=== PATIENT | female | born 1945 | race Caucasian/White ===

== ENCOUNTER → 2016-09-24 | Outpatient (CLI) | payer MEDICARE ==
--- NOTE | 2016-09-25 12:04 | MM ---
Reason for exam: screening (asymptomatic). Last mammogram was performed 1 year and 6 months ago. History: Patient is postmenopausal and has history of other cancer at age 46. Family history of breast cancer in maternal aunt. Physical Findings: A clinical breast exam by your physician is recommended on an annual basis and results should be correlated with mammographic findings. MG 3D Screening Mammo W/Cad Bilateral CC and MLO view(s) were taken. Prior study comparison: March 15, 2015, bilateral MG screening mammo w CAD. May 04, 2013, bilateral digital screening mammo w/CAD. February 11, 2012, bilateral digital screening mammo w/CAD. There are scattered fibroglandular densities. No significant changes when compared with prior studies. ASSESSMENT: Negative, BI-RAD 1 RECOMMENDATION: Routine screening mammogram of both breasts in 1 year. Manage on a clinical basis with regard to patient's reported medial left breast sore.
--- NOTE | 2016-09-25 13:18 | BD ---
EXAMINATION TYPE: MG DEXA axial skeleton. DATE OF EXAM: 09/24/2016 2:35 PM COMPARISON: 03/15/2015 CLINICAL HISTORY: Height: 4 ft 10 in Weight: 167 FRAX RISK QUESTIONS: Alcohol (3 or more units per day): YES Family History (Parent hip fracture): YES Glucocorticoids (More than 3mos): YES (Ex: prednisone, prednisolone, methylprednisolone, dexamethasone, and hydrocortisone). History of Fracture in Adulthood: NO Secondary Osteoporosis: 1. Type 1 Diabetes: NO 2. Hyperthyroidism: NO 3. Menopause before 45: NO 4. Malnutrition: NO 5. Chronic liver disease: NO Rheumatoid Arthritis: NO Current Tobacco Use: NO RISK FACTORS HISTORY OF: Drink Alcohol: SOCIALLY Active: YES Postmenopausal woman: AGE 58 Lost more than 2 inches in height since high school: YES MEDICATIONS: Additional Medications: PAXIL, XANAX,CICLOPIROX, LAMOTRIGINE, ATORVASTATIN, XOPENEX INHALER,LM , ALIGN, ASPIRIN, PREVACID, VIT D, CENTRUM, IBUPROFEN, Additional History: EXAM MEASUREMENTS: Bone mineral densitometry was performed using the [employer] System. Bone mineral density as measured about the Lumbar spine is: ----- L1-L4(G/cm2): 1.328 T Score Values are as follows: ----- L2: 1.2 ----- L3: 2.3 ----- L4: 0.0 ----- L1-L4: 1.2 Bone mineral density has: Increased 1.1% since study of: 2014 Bone mineral density about the R hip (g/cm2): 0.766 Bone mineral density about the L hip (g/cm2): 0.807 T Score values are as follows: -----R Neck: -2.0 -----L Neck: -1.7 -----R Intertrochanter: -0.8 -----L Intertrochanter: -1.0 Bone mineral density has: Decreased -3.7% since study of: 2014 IMPRESSION: Osteopenia (T Score between -2.5 and -1 as noted by T score values There is slightly increased risk of fracture and the patient may be considered for treatment. Re-Screen 1-2 years. Bone density is diminished 3.7% from the comparison of 03/15/2015 within the bilateral hips NOTE: T-SCORE=SD OF THE YOUNG ADULT MEAN.
== END | disposition home or self-care (01) ==
LOC: RADMAMWWP 13:56
PROVIDERS: ATTEND Internal Medicine Geriatric Medicine
DX: Z12.31 Encounter for screening mammogram for malignant neoplasm of breast (principal); M85.80 Other specified disorders of bone density and structure, unspecified site
CPT/HCPCS: 77080; 77063; G0202

== ENCOUNTER → 2017-12-29 | Outpatient (CLI) | payer MEDICARE ==
[2017-12-29 10:04] VITALS: BP 147/61; PULSE 88; TEMP 97.9; BMI 33.1
--- NOTE | 2017-12-29 11:05 | P.HPOB ---
History of Present Illness H&P Date: 12/29/17 Chief Complaint: The patient is here for her routine gynecologic exam and mammogram. This is a 72-year-old with an LMP of 2001. The patient is here to establish with this office. She states she does have a history of a cystocele. This has been followed conservatively. She states she notices a slight bulge that she can feel from the vaginal opening. She also has some issues with urinary incontinence. She states she can leak any time and usually does not have warning. It has been about 3 years since her last pelvic exam. Review of Systems Her weight has fluctuated over the last few years. She lost 25 pounds while on [employer]. She has gained about 15 pounds back. She denies respiratory, cardiac and G.I. problems. She denies maltreatment or problems with falling. : she has had some problems with urinary leakage can occur anytime. Past Medical History Past Medical History: Cancer (Bladder approximately 2002), GERD/Reflux Additional Past Medical History / Comment(s): History of osteopenia and vocal chord disfunction. 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 - Past Family History Mother Family Medical History: No Reported History Additional Family Medical History / Comment(s): Maternal aunt had breast cancer. Father Additional Family Medical History / Comment(s): ALS. Medications and Allergies Home Medications and Allergies Comment(s): The patient takes medications including Paxil and alprazolam, but she did not bring her list with dosages. She states you will get this to us in the near future. Home Medications Medication Instructions Recorded Confirmed Type No Known Home Medications 12/29/17 12/29/17 History Allergies Allergy/AdvReac Type Severity Reaction Status Date / Time Sulfa (Sulfonamide Allergy Swelling Unverified 12/29/17 09:56 Antibiotics) codeine AdvReac Rash/Hives Unverified 12/29/17 09:56 Exam Vital Signs Temp Pulse BP 12/29/17 09:59 97.9 F 88 147/61 Intake and Output 12/28/17 12/29/17 12/29/17 22:59 06:59 14:59 Other: Weight 74.389 kg Height 4'11", BMI 33.1. This is a short stature to well-nourished white female who is alert and oriented times 3 in no acute distress. HEENT: Within normal limits. NECK: Supple without mass or thyromegaly. CHEST AND LUNGS: Clear to auscultation. HEART: Regular rate and rhythm. BREASTS: Are without mass or discharge. There is central nipple inversion which the patient states she has had for many years. AXILLARY EXAM: Negative for adenopathy. BACK: Negative for CVA tenderness. ABDOMEN: Soft, nontender, without palpable masses. PELVIC EXAM: Normal external genitalia with mild to moderate atrophy. Cervix and vagina appear normal with mild to moderate atrophy. There is no unusual discharge. There is no evidence of prolapse at rest. There is a grade 1 to 2 cystocele with Valsalva. No urinary leakage is demonstrated. The uterus is midposition, nongravid size and nontender. There are no palpable adnexal masses or tenderness. RECTAL EXAM: rectovaginal exam is negative for mass or tenderness and is negative for occult blood. EXTREMITIES: Nontender. IMPRESSION: 1. 72-year-old menopausal female with normal gynecologic exam. 2. Small cystocele with Valsalva and is subjectively noticeable by the patient at times. 3. History of urinary incontinence, probably mixed incontinence. 4. History of osteopenia. PLAN: 1. Pap smear was performed. 2. Self breast awareness was discussed. 3. Screening mammogram will be done today. 4. We have had a long discussion regarding the small cystocele. She will do negative Valsalva exercises on a regular basis and these were described to the patient. I've also recommended Kegal exercises which were also described to the patient. I have recommended sets of 20 at least 3 times daily. She will call if she needs further evaluation for urinary incontinence. 5. Osteoporosis prevention was discussed. Bone density test was done on 2016 in short osteopenia. I recommended that she repeat this next year. 6. I have recommended that she check her own blood pressure at home on a regular basis and to follow-up with Dr. Ortiz for blood pressure elevations. 7. She will return in one year and PRN.
--- NOTE | 2017-12-31 10:43 | MM ---
Reason for exam: screening (asymptomatic). Last mammogram was performed 1 year and 3 months ago. History: Patient is postmenopausal and has history of other cancer at age 46. Family history of breast cancer in maternal aunt. Physical Findings: A clinical breast exam by your physician is recommended on an annual basis and results should be correlated with mammographic findings. MG 3D Screening Mammo W/Cad Bilateral CC and MLO view(s) were taken. Prior study comparison: September 24, 2016, bilateral MG 3d screening mammo w/cad. March 15, 2015, bilateral MG screening mammo w CAD. There are scattered fibroglandular densities. No significant changes when compared with prior studies. ASSESSMENT: Benign, BI-RAD 2 RECOMMENDATION: Routine screening mammogram of both breasts in 1 year.
== END | disposition home or self-care (01) ==
LOC: WWCWWP 09:44
PROVIDERS: ATTEND Obstetrics & Gynecology
DX: Z12.31 Encounter for screening mammogram for malignant neoplasm of breast (principal)
CPT/HCPCS: 77063; 77067

== ENCOUNTER → 2018-03-15 | Outpatient (CLI) | payer MEDICARE ==
--- NOTE | 2018-03-15 13:38 | XR ---
EXAMINATION TYPE: XR chest 2V DATE OF EXAM: 03/15/2018 COMPARISON: 03/06/2016 INDICATION: Short of breath TECHNIQUE: Frontal and lateral views of the chest are obtained. FINDINGS: The heart size is normal. The pulmonary vasculature is normal. There is some linear scarring within the left midlung. Spondylosis is through the thoracic spine. IMPRESSION: 1. No acute pulmonary process.
== END ==
LOC: RADXRMAIN 13:02
PROVIDERS: ATTEND Internal Medicine Geriatric Medicine
DX: R06.02 Shortness of breath (principal)
CPT/HCPCS: 71046

== ENCOUNTER → 2018-03-22 | Outpatient (CLI) | payer MEDICARE ==
--- NOTE | 2018-03-23 10:04 | ECHOF ---
Referral Reason:I27.20 Pulmonary hypertension MEASUREMENTS -------- HEIGHT: 147.3 cm WEIGHT: 74.4 kg BP: 157/72 RVIDd: 2.9 cm (< 3.3) IVSd: 1.1 cm (0.6 - 1.1) LVIDd: 4.7 cm (3.9 - 5.3) LVPWd: 1.0 cm (0.6 - 1.1) IVSs: 1.3 cm LVIDs: 3.3 cm LVPWs: 1.6 cm LA Diam: 3.5 cm (2.7 - 3.8) LAESV Index (A-L): 18.31 ml/m Ao Diam: 3.2 cm (2.0 - 3.7) AV Cusp: 2.0 cm (1.5 - 2.6) MV EXCURSION: 23.384 mm (> 18.000) MV EF SLOPE: 96 mm/s (70 - 150) EPSS: 0.5 cm MV E Robert: 0.57 m/s MV DecT: 435 ms MV A Robert: 0.88 m/s MV E/A Ratio: 0.65 RAP: 5.00 mmHg RVSP: 28.31 mmHg FINDINGS -------- Sinus rhythm. This was a technically good study. The left ventricular size is normal. There is borderline concentric left ventricular hypertrophy. Overall left ventricular systolic function is normal with, an EF between 55 - 60 %. The right ventricle is normal in size and function. Normal LA size by volume 22+/-6 ml/m2. The right atrium is normal in size. The aortic valve is trileaflet and appears structurally normal. Mild mitral annular calcification present. Mild tricuspid regurgitation present. Right ventricular systolic pressure is normal at < 35 mmHg. Trace/mild (physiologic) pulmonic regurgitation. The aortic root size is normal. Normal inferior vena cava with normal inspiratory collapse consistent with estimated right atrial pre ssure of 5 mmHg. There is no pericardial effusion. CONCLUSIONS -------- 1. Sinus rhythm. 2. This was a technically good study. 3. The left ventricular size is normal. 4. There is borderline concentric left ventricular hypertrophy. 5. Overall left ventricular systolic function is normal with, an EF between 55 - 60 %. 6. The right ventricle is normal in size and function. 7. Normal LA size by volume 22+/-6 ml/m2. 8. The right atrium is normal in size. 9. The aortic valve is trileaflet and appears structurally normal. 10. Mild mitral annular calcification present. 11. Mild tricuspid regurgitation present. 12. Right ventricular systolic pressure is normal at < 35 mmHg. 13. Trace/mild (physiologic) pulmonic regurgitation. 14. The aortic root size is normal. 15. Normal inferior vena cava with normal inspiratory collapse consistent with estimated right atrial pressure of 5 mmHg. 16. There is no pericardial effusion. BOOKKEEPING SERVICE SALES AGENT: Nelsy Hernandez RDCS
== END | disposition home or self-care (01) ==
LOC: RADECHMAIN 15:49
PROVIDERS: ATTEND Internal Medicine Geriatric Medicine
DX: I08.1 Rheumatic disorders of both mitral and tricuspid valves (principal); I27.20 Pulmonary hypertension, unspecified
CPT/HCPCS: 93306

== ENCOUNTER 2018-04-23 15:12 | Emergency (ER) | payer MEDICARE ==
[2018-04-23] MEDS ORDERED: LORazepam 2 MG/ML INJ IV STA (16:18)
--- NOTE | 2018-04-23 16:46 | ED ---
General Adult HPI - General Chief complaint: Psychiatric Symptoms Stated complaint: Anxiety & Depression Time Seen by Provider: 04/23/18 16:02 Source: patient, RN notes reviewed Mode of arrival: wheelchair Limitations: no limitations - History of Present Illness Initial comments: Patient is 72-year-old female presents emergency room today with a chief complaint of increased anxiety and panic attack. Did see her therapist further treatment was advised come back here to the emergency room for evaluation. Patient's that bedside providing much of the history stating that she generic Paxil. States that in the past she was taken off the name brand given generic she had similar symptoms persist 10 days goes was given a prescription for generic Paxil. States symptoms have been increasing. Was seen here the emergency room yesterday for same complaints. The time was calm after medication was given here in the ER. She felt couple being discharged follow- up with the psychiatrist. At this time patient has increased anxiety. Patient denies any pain. She denies any other complaints. states this is consistent with anxiety attacks that she's had in the past. Patient's states that there is multiple family issues that the or tingling currently. Patient denies any recent fever, chills, shortness of breath, chest pain, back pain, abdominal pain, nausea or vomiting, headaches or visual changes, or any other complaints. - Related Data Home Medications Medication Instructions Recorded Confirmed ALPRAZolam [ALPRAZolam XR] 1 mg PO BID 01/06/18 04/23/18 Aspirin [Children's Aspirin] 81 mg PO DAILY 01/06/18 04/23/18 Atorvastatin [Lipitor] 10 mg PO DAILY 01/06/18 04/23/18 Ergocalciferol (Vitamin D2) 50,000 unit PO Q7D 01/06/18 04/23/18 [Vitamin D2] lamoTRIgine [LaMICtal] 75 mg PO HS 01/06/18 04/23/18 traZODone HCL [TraZODone HCl] 50 mg PO HS 01/06/18 04/23/18 PARoxetine [Paxil] 40 mg PO DAILY 04/22/18 04/23/18 lamoTRIgine [LaMICtal] 50 mg PO DAILY 04/22/18 04/23/18 Previous Rx's Medication Instructions Recorded PARoxetine HCL [Paxil] 40 mg PO DAILY #14 tab 04/23/18 Allergies Allergy/AdvReac Type Severity Reaction Status Date / Time Sulfa (Sulfonamide Allergy Swelling Verified 04/23/18 16:37 Antibiotics) codeine AdvReac Rash/Hives Verified 04/23/18 16:37 Review of Systems ROS Statement: Those systems with pertinent positive or pertinent negative responses have been documented in the HPI. ROS Other: All systems not noted in ROS Statement are negative. Past Medical History Past Medical History: Cancer, GERD/Reflux Additional Past Medical History / Comment(s): History of osteopenia and vocal chord disfunction. 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 History of Any Multi-Drug Resistant Organisms: None Reported Past Surgical History: Bladder Surgery, Joint Replacement, Orthopedic Surgery Additional Past Surgical History / Comment(s): 2 births natural, bladder cancer Past Psychological History: Anxiety, Depression Smoking Status: Never smoker Past Alcohol Use History: Occasional Past Drug Use History: None Reported - Past Family History Mother Family Medical History: No Reported History Additional Family Medical History / Comment(s): Maternal aunt had breast cancer. Father Additional Family Medical History / Comment(s): ALS. General Exam - General Exam Comments Initial Comments: General: The patient is awake and alert, in no distress, and does not appear acutely ill. Eye: Pupils are equal, round and reactive to light. Extra-ocular movements are intact. No nystagmus. There is normal conjunctiva bilaterally. No signs of icterus. Ears, nose, mouth and throat: There are moist mucous membranes and no oral lesions. Neck: The neck is supple, there is no tenderness or JVD. Cardiovascular: There is a regular rate and rhythm. No murmur, rub or gallop is appreciated. Respiratory: Lungs are clear to auscultation, respirations are non-labored, breath sounds are equal. No wheezes, stridor, rales, or rhonchi. Musculoskeletal: Normal ROM, no tenderness. Sensation intact. Strength 5/5. Pulses equal bilaterally 2+. Neurological: A&O x 3. CN II-XII intact, There are no obvious motor or sensory deficits. Coordination appears grossly intact. Speech is normal. Skin: Skin is warm and dry and no rashes or lesions are noted. Psychiatric: Cooperative. Anxious. Limitations: no limitations Course Vital Signs 04/23/18 15:41 Temperature 98.1 F Pulse Rate 68 Respiratory 16 Rate Blood Pressure 129/80 O2 Sat by Pulse 96 Oximetry EKG Findings - EKG Comments: EKG Findings:: EKG performed at 1721: Shows normal sinus rhythm at 61 bpm NJ interval 130. QRS 86. QT/QTc 426/420. No acute ST changes. Medical Decision Making - Medical Decision Making Patient has been seen here in the emergency room by mental health. They did discuss case with psychiatrist recommends increasing Paxil from 20 mg and 10 mg at 20 mg twice a day. Also recommending starting a prescription that can be ordered for the name brand of Paxil some generic. Patient will be given a prescription for the next 7 days. Advised following up on Thursday. - Lab Data Result diagrams: 04/23/18 16:54 Lab Results 04/23/18 Range/Units 16:54 WBC 7.1 (3.8-10.6) k/uL RBC 4.87 (3.80-5.40) m/uL Hgb 14.1 (11.4-16.0) gm/dL Hct 44.5 (34.0-46.0) % MCV 91.4 (80.0-100.0) fL MCH 29.0 (25.0-35.0) pg MCHC 31.7 (31.0-37.0) g/dL RDW 13.6 (11.5-15.5) % Plt Count 223 (150-450) k/uL Neutrophils % 55 % Lymphocytes % 35 % Monocytes % 7 % Eosinophils % 1 % Basophils % 1 % Neutrophils # 3.9 (1.3-7.7) k/uL Lymphocytes # 2.4 (1.0-4.8) k/uL Monocytes # 0.5 (0-1.0) k/uL Eosinophils # 0.1 (0-0.7) k/uL Basophils # 0.0 (0-0.2) k/uL Disposition Clinical Impression: Acute anxiety Disposition: HOME SELF-CARE Condition: Good Instructions: Anxiety (ED) Additional Instructions: Please use medication as discussed. Please follow-up with psychiatrist Thursday as discussed. Please return to emergency room if the symptoms increase or worsen or for any other concerns. Prescriptions: PARoxetine HCL [Paxil] 40 mg PO DAILY #14 tab Is patient prescribed a controlled substance at d/c from ED?: No Referrals: Tyron Ortiz MD [Primary Care Provider] - 1-2 days Time of Disposition: 20:36
[2018-04-23 17:17] LABS: Basophils % (A) 1 %; Eosinophils # (A) 0.1 k/uL (0-0.7); Eosinophils % (A) 1 %; HCT 44.5 % (34.0-46.0); HGB 14.1 gm/dL (11.4-16.0); Lymphocytes # (A) 2.4 k/uL (1.0-4.8); Lymphocytes % (A) 35 %; MCHC 31.7 g/dL (31.0-37.0); MCV 91.4 fL (80.0-100.0); Mean Platelet Volume 7.7; Monocytes # (A) 0.5 k/uL (0-1.0); Monocytes % (A) 7 %; Neutrophils # (A) 3.9 k/uL (1.3-7.7); Neutrophils % (A) 55 %; Platelet Count 223 k/uL (150-450); RBC 4.87 m/uL (3.80-5.40); RDW 13.6 % (11.5-15.5); WBC 7.1 k/uL (3.8-10.6)
[2018-04-23 20:43] VITALS: BP 151/80; PULSE 59; RESP 20; TEMP 98.2
== END 2018-04-23 20:52 | disposition home or self-care (01) ==
LOC: EC 15:12
DX: F41.9 Anxiety disorder, unspecified (principal); F32.9 Major depressive disorder, single episode, unspecified; Z85.51 Personal history of malignant neoplasm of bladder; Z79.82 Long term (current) use of aspirin; Z79.899 Other long term (current) drug therapy; Z88.2 Allergy status to sulfonamides; Z88.5 Allergy status to narcotic agent
CPT/HCPCS: 36415; 85025; 99283; 96372; J2060

== ENCOUNTER → 2018-12-30 | Outpatient (CLI) | payer MEDICARE ==
--- NOTE | 2018-12-30 13:49 | BD ---
EXAMINATION TYPE: Axial Bone Density DATE OF EXAM: 12/30/2018 COMPARISON: 09.24.2016 CLINICAL HISTORY: 73 YR OLD FEMALE....ICD-10 CODE: M81.0 OSTEOPRORSIS Height: 57.3 Weight: 161 FRAX RISK QUESTIONS: Alcohol (3 or more units per day): YES, SOCIALLY Family History (Parent hip fracture): YES Glucocorticoids (More than 3mos): YES (Ex: prednisone, prednisolone, methylprednisolone, dexamethasone, and hydrocortisone). RISK FACTORS HISTORY OF: FOOT FRACTURE ONLY, YOUNGER THAN AGE 51 Postmenopausal woman: YES AT AGE 58 Lost more than 2 inches in height since high school: YES MEDICATIONS: Prednisone or other steroids: YES, XOPENEX INHALER FOR ASTHMA, LM How Long: MANY YRS Additional Medications: PAXIL, XANAX, STATIN FOR CHOLESTEROL, ASPIRIN, REFLUX MEDS, CENTRUM, VIT D, I BUPROFEN, Additional History: ANXIETY, CHOLESTEROL, REFLUX OSTEOARTHRITIS EXAM MEASUREMENTS: Bone mineral densitometry was performed using the [employer] System. Bone mineral density as measured about the Lumbar spine is: ----- L1-L4(G/cm2): 1.474 T Score Values are as follows: ----- L1: 1.9 ----- L2: 4.1 ----- L3: 3.5 ----- L4: 0.7 ----- L1-L4: 2.5 Bone mineral density has: Increased 12.6% since study of: 09.24.2016 Bone mineral density about the R hip (g/cm2): 0.958 Bone mineral density about the L hip (g/cm2): 0.952 T Score values are as follows: -----R Neck: -2.1 -----L Neck: -1.7 -----R Total: -0.4 -----L Total: -0.4 Bone mineral density has: Increased 1.7% since study of: 09.24.2016 FRAX%s: THERE IS A 23.0% CHANCE FOR A MAJOR OSTEOPOROTIC FX AND A 7.1% FOR HIP....PROBABILITY FOR FX IN 10 YRS TIME IMPRESSION: Osteopenia (T Score between -2.5 and -1). There is slightly increased risk of fracture and the patient may be considered for treatment. Re-Screen 2-5 years. NOTE: T-SCORE=SD OF THE YOUNG ADULT MEAN.
--- NOTE | 2018-12-31 09:07 | MM ---
Reason for exam: screening (asymptomatic). Last mammogram was performed 1 year ago. History: Patient is postmenopausal and has history of other cancer at age 46. Family history of breast cancer in maternal aunt. Physical Findings: A clinical breast exam by your physician is recommended on an annual basis and results should be correlated with mammographic findings. MG 3D Screening Mammo W/Cad Bilateral CC and MLO view(s) were taken. Prior study comparison: December 29, 2017, bilateral MG 3d screening mammo w/cad. September 24, 2016, bilateral MG 3d screening mammo w/cad. There are scattered fibroglandular densities. There is no discrete abnormality. No significant changes when compared with prior studies. ASSESSMENT: Negative, BI-RAD 1 RECOMMENDATION: Routine screening mammogram of both breasts in 1 year.
== END | disposition home or self-care (01) ==
LOC: RADMAMWWP 11:56
PROVIDERS: ATTEND Internal Medicine Geriatric Medicine
DX: Z12.31 Encounter for screening mammogram for malignant neoplasm of breast (principal); M85.80 Other specified disorders of bone density and structure, unspecified site
CPT/HCPCS: 77063; 77067; 77080

== ENCOUNTER → 2019-04-21 | Outpatient (CLI) | payer MEDICARE ==
--- NOTE | 2019-04-22 06:57 | US ---
EXAMINATION TYPE: US kidneys/renal and bladder DATE OF EXAM: 04/21/2019 COMPARISON: NONE CLINICAL HISTORY: R31.9 hematuria. Patient states having history of bladder cancer x twice, 14 years ago. EXAM MEASUREMENTS: Right Kidney: 9.8 x 4.7 x 4.0 cm Left Kidney: 9.5 x 4.8 x 4.7 cm Limited visualization due to overlying bowel gas Right Kidney: No hydronephrosis or masses seen, limited visualization Left Kidney: Pelviectasis without juju hydronephrosis. Bladder: Partially distended, anechoic. Limited due to bowel gas and location. Bilateral Jets not seen There is no evidence for hydronephrosis at this point in time. No nephrolithiasis is seen. No carrie s are identified. The urinary bladder is anechoic. Bilateral ureteral jets not are seen. IMPRESSION: Limited visualization of the bladder and right kidney however no gross evidence of hydron ephrosis nor nephrolithiasis. The visualized portions of the urinary bladder no gross evidence of int ravesicular mass.
== END | disposition home or self-care (01) ==
LOC: RADUSWWP 16:04
PROVIDERS: ATTEND Urology
DX: R31.9 Hematuria, unspecified (principal)
CPT/HCPCS: 76770

== ENCOUNTER → 2019-05-25 | Outpatient (CLI) | payer MEDICARE ==
--- NOTE | 2019-05-25 15:35 | XR ---
EXAMINATION TYPE: XR chest 2V DATE OF EXAM: 05/25/2019 COMPARISON: 03/15/2018 INDICATION: Short of breath COPD TECHNIQUE: Frontal and lateral views of the chest are obtained. FINDINGS: The heart size is normal. The pulmonary vasculature is normal. Minimal linear atelectasis is within the lingula. Lungs are otherwise clear.. IMPRESSION: 1. Minimal plate atelectasis versus scarring at the lingula. 2. An acute process is not otherwise evident.
== END | disposition home or self-care (01) ==
LOC: RADXRMAIN 14:50
PROVIDERS: ATTEND Internal Medicine Geriatric Medicine
DX: J44.9 Chronic obstructive pulmonary disease, unspecified (principal)
CPT/HCPCS: 71046

== ENCOUNTER → 2019-05-31 | Outpatient (CLI) | payer MEDICARE ==
--- NOTE | 2019-05-31 12:02 | CT ---
EXAMINATION TYPE: CT abdomen w con DATE OF EXAM: 05/31/2019 HISTORY: Right sided flank pain. CT DLP: 731.7mGycm Automated Exposure Control for Dose Reduction was Utilized. CONTRAST: CT scan of the abdomen is performed with oral and with IV Contrast, patient injected with 100 mL of I sovue 300. COMPARISON: Renal ultrasound April 21, 2019 FINDINGS: LUNG BASES: No significant abnormality is appreciated. LIVER/GB: No significant abnormality is appreciated. PANCREAS: No significant abnormality is seen. SPLEEN: No significant abnormality is seen. ADRENALS: No significant abnormality is seen. KIDNEYS: Symmetric cortical medullary uptake and excretion from both kidneys without hydronephrosis s een bilaterally. BOWEL: Oral contrast does not reach level of terminal ileum making evaluation distal bowel slightly s uboptimal. Normal-appearing appendix is seen from base of cecum. No suspicious small or large bowel d ilatation. LYMPH NODES: No greater than 1cm abdominal lymph nodes are appreciated. OSSEOUS STRUCTURES: Straightening of spine with multilevel moderate to severe disc space narrowing an d vacuum disc phenomenon with multilevel endplate sclerosis and moderate anterior and lateral spurrin g. Facet arthropathy lower lumbar levels. OTHER: No significant additional abnormality is seen. IMPRESSION: No significant acute finding is seen to account for patient's clinical symptoms right-kushal ed flank pain.
== END | disposition home or self-care (01) ==
LOC: RADCTMAIN 10:23
PROVIDERS: ATTEND Urology
DX: R10.9 Unspecified abdominal pain (principal); R31.0 Gross hematuria; Z88.2 Allergy status to sulfonamides; Z91.048 Other nonmedicinal substance allergy status
CPT/HCPCS: 82565; 84520; 74160; 36415; Q9967

== ENCOUNTER → 2021-04-11 | Outpatient (CLI) | payer MEDICARE ==
--- NOTE | 2021-04-12 14:46 | BD ---
EXAMINATION TYPE: Axial Bone Density DATE OF EXAM: 04/11/2021 COMPARISON: NONE CLINICAL HISTORY: Height: 4 FT 10 IN Weight: 160 FRAX RISK QUESTIONS: Alcohol (3 or more units per day): NO Family History (Parent hip fracture): YES Glucocorticoids (More than 3mos): NO (Ex: prednisone, prednisolone, methylprednisolone, dexamethasone, and hydrocortisone). History of Fracture in Adulthood: NO Secondary Osteoporosis: 1. Type 1 Diabetes: NO 2. Hyperthyroidism: NO 3. Menopause before 45: NO 4. Malnutrition: NO 5. Chronic liver disease: NO Rheumatoid Arthritis: NO Current Tobacco Use: NO RISK FACTORS HISTORY OF: Surgery to Spine/Hip(right/left)/Wrist (right/left): NO Family History of Osteoporosis: NO Active: YES Diet low in dairy products/other sources of calcium: NO Postmenopausal woman: AGE 58 Take estrogen and/or progesterone medications: NO Lost more than 2 inches in height since high school: YES Poor Health: GOOD MEDICATIONS: Additional Medications: PAXIL, XANAX, CHOLESTEROL MEDS, ASPIRIN, OMEPRAZOLE, FLOVENT DAILY,[place] [address] Additional History: EXAM MEASUREMENTS: Bone mineral densitometry was performed using the [employer] System. Bone mineral density as measured about the Lumbar spine is: ----- L1-L4(G/cm2): 1.331 T Score Values are as follows: ----- L2: 1.6 ----- L3: 2.1 ----- L4: -0.3 ----- L1-L4: 1.3 Bone mineral density has: DECREASED -11.1 % since study of: 2018 Bone mineral density about the R hip (g/cm2): 0.695 Bone mineral density about the L hip (g/cm2): 0.739 T Score values are as follows: -----R Neck: -2.5 -----L Neck: -2.2 -----R Total: -1.2 -----L Total: -1.1 Bone mineral density has: DECREASED -9.6 % since study of: 2018 IMPRESSION: Osteopenia (T Score between -2.5 and -1). There is slightly increased risk of fracture and the patient may be considered for treatment. Re-Screen 2-5 years. NOTE: T-SCORE=SD OF THE YOUNG ADULT MEAN.
--- NOTE | 2021-04-15 13:59 | MM ---
Reason for exam: screening (asymptomatic). Last mammogram was performed 2 years and 3 months ago. History: Patient is postmenopausal and has history of other cancer at age 46. Family history of breast cancer in maternal aunt. Took hormonal contraceptives for 3 years. Physical Findings: A clinical breast exam by your physician is recommended on an annual basis and results should be correlated with mammographic findings. MG 3D Screening Mammo W/Cad Bilateral CC and MLO view(s) were taken. Prior study comparison: December 30, 2018, bilateral MG 3d screening mammo w/cad. December 29, 2017, bilateral MG 3d screening mammo w/cad. There are scattered fibroglandular densities. There are benign appearing vascular calcifications bilaterally. There is no discrete abnormality. ASSESSMENT: Benign, BI-RAD 2 RECOMMENDATION: Routine screening mammogram of both breasts in 1 year.
== END | disposition home or self-care (01) ==
LOC: RADBDWWP 15:44
PROVIDERS: ATTEND Internal Medicine Geriatric Medicine
DX: Z12.31 Encounter for screening mammogram for malignant neoplasm of breast (principal); M85.89 Other specified disorders of bone density and structure, multiple sites; Z78.0 Asymptomatic menopausal state; Z79.82 Long term (current) use of aspirin; Z79.899 Other long term (current) drug therapy; Z80.3 Family history of malignant neoplasm of breast; Z79.51 Long term (current) use of inhaled steroids
CPT/HCPCS: 77063; 77067; 77080

== ENCOUNTER → 2022-02-21 | Outpatient (CLI) | payer MEDICARE ==
--- NOTE | 2022-02-21 15:10 | XR ---
EXAMINATION TYPE: XR chest 2V DATE OF EXAM: 02/21/2022 COMPARISON: 05/25/2019 HISTORY: Shortness of breath TECHNIQUE: Frontal and lateral views of the chest are obtained. FINDINGS: Scattered senescent parenchymal changes noted. No evidence for infiltrate. No evidence for atelectasis. Heart size is stable. Mediastinal structures are stable and grossly unremarkable. No evidence for hilar prominence. Degenerative changes dorsal spine. IMPRESSION: 1. No evidence for acute pulmonary disease.
== END | disposition home or self-care (01) ==
LOC: RADXRMAIN 14:27
PROVIDERS: ATTEND Nurse Practitioner Family
DX: R06.02 Shortness of breath (principal)
CPT/HCPCS: 71046

== ENCOUNTER 2022-03-16 00:16 | Observation (INO) | payer MEDICARE ==
[2022-03-16] MEDS ORDERED: SODIUM CHLORIDE 0.9% 500 ML 500 ML IV STA (03:57)
[2022-03-16] MEDS ORDERED: SODIUM CHLORIDE 0.9% 1,000 ML IV STA (03:57)
[2022-03-16] MEDS ORDERED: PANTOPRAZOLE 40 MG/10 ML VIAL IVP STA (03:57)
[2022-03-16] MEDS ORDERED: ONDANSETRON 4 MG/2 ML VIAL IVP STA (03:57)
--- NOTE | 2022-03-16 04:16 | ED ---
GI Bleed HPI - General Chief complaint: GI Bleed Stated complaint: Abdominal Pain, Blood in stool, Diarrhea Time Seen by Provider: 03/16/22 03:57 Source: patient, RN notes reviewed, old records reviewed Mode of arrival: ambulatory Limitations: no limitations - History of Present Illness Initial comments: This is a 76-year-old female to the emergency department for evaluation of gross blood in her stools 2. No lightheadedness dizziness or weakness no abdominal pain. No nausea vomiting. No blood thinners patient states he was related to any relation to diarrhea although no current diarrhea. MD complaint: blood streaked stool, gross hematochezia -: hour(s) Radiation: none Severity scale (1-10): 6 Quality: painless Consistency: constant Improves with: none Worsens with: none Associated Symptoms: nausea, weakness Treatments Prior to Arrival: none - Related Data Home Medications Medication Instructions Recorded Confirmed Aspirin [Children's Aspirin] 81 mg PO DAILY 01/06/18 03/16/22 Ergocalciferol (Vitamin D2) 50,000 unit PO Q14D 01/06/18 03/16/22 [Vitamin D2] ALPRAZolam [Xanax] 0.125 mg PO HS 03/16/22 03/16/22 ALPRAZolam [Xanax] 0.25 mg PO DAILY 03/16/22 03/16/22 Bifidobacterium Infantis [Align] 4 mg PO AC-BID 03/16/22 03/16/22 Cranberry Fruit Extract [Cranberry] 500 mg PO DAILY 03/16/22 03/16/22 Denosumab [Prolia] 60 mg SQ Q180D 03/16/22 03/16/22 Fluticasone Propionate 110 Mcg 1 puff INHALATION RT-BID 03/16/22 03/16/22 [Flovent 110 Mcg Inhaler] Lansoprazole 30 mg PO AC-BID 03/16/22 03/16/22 Latanoprost [Latanoprost 0.005%] 1 drop BOTH EYES HS 03/16/22 03/16/22 Montelukast Sodium [Singulair] 10 mg PO HS 03/16/22 03/16/22 Multivit-Min/FA/Lycopen/Lutein 1 tab PO DAILY 03/16/22 03/16/22 [Centrum Silver Tablet] PARoxetine HCL [Paxil Cr] 50 mg PO DAILY 03/16/22 03/16/22 QUEtiapine FUMARATE [SEROquel] 25 mg PO HS 03/16/22 03/16/22 Rosuvastatin [Crestor] 10 mg PO DAILY 03/16/22 03/16/22 Sennosides/Docusate Sodium 1 tab PO BID 03/16/22 03/16/22 [Senna-S 8.6-50 mg Tablet] Ubidecarenone [Coenzyme Q10] 200 mg PO DAILY 03/16/22 03/16/22 amLODIPine [Norvasc] 5 mg PO DAILY 03/16/22 03/16/22 lamoTRIgine [LaMICtal] 200 mg PO HS 03/16/22 03/16/22 Allergies Allergy/AdvReac Type Severity Reaction Status Date / Time codeine Allergy Rash/Hives Verified 03/16/22 14:46 nickel Allergy Rash/Hives Verified 03/16/22 14:46 Sulfa (Sulfonamide Allergy Swelling Verified 03/16/22 14:46 Antibiotics) of genitals Review of Systems ROS Statement: Those systems with pertinent positive or pertinent negative responses have been documented in the HPI. ROS Other: All systems not noted in ROS Statement are negative. Past Medical History Past Medical History: Cancer, GERD/Reflux Additional Past Medical History / Comment(s): History of osteopenia and vocal chord disfunction. 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 History of Any Multi-Drug Resistant Organisms: None Reported Past Surgical History: Bladder Surgery, Joint Replacement, Orthopedic Surgery Additional Past Surgical History / Comment(s): 2 births natural, bladder cancer Past Psychological History: Anxiety, Depression Smoking Status: Never smoker Past Alcohol Use History: Occasional Past Drug Use History: None Reported - Past Family History Mother Family Medical History: No Reported History Additional Family Medical History / Comment(s): Maternal aunt had breast cancer. Father Additional Family Medical History / Comment(s): ALS. General Exam Limitations: no limitations General appearance: alert, in no apparent distress Head exam: Present: atraumatic, normocephalic, normal inspection Eye exam: Present: normal appearance, PERRL, EOMI. Absent: scleral icterus, conjunctival injection, periorbital swelling ENT exam: Present: normal exam, mucous membranes moist Neck exam: Present: normal inspection. Absent: tenderness, meningismus, lymphadenopathy Respiratory exam: Present: normal lung sounds bilaterally. Absent: respiratory distress, wheezes, rales, rhonchi, stridor Cardiovascular Exam: Present: regular rate, normal rhythm, normal heart sounds. Absent: systolic murmur, diastolic murmur, rubs, gallop, clicks GI/Abdominal exam: Present: soft, normal bowel sounds. Absent: distended, tenderness, guarding, rebound, rigid Extremities exam: Present: normal inspection, full ROM, normal capillary refill. Absent: tenderness, pedal edema, joint swelling, calf tenderness Back exam: Present: normal inspection Neurological exam: Present: alert, oriented X3, CN II-XII intact Psychiatric exam: Present: normal affect, normal mood Skin exam: Present: warm, dry, intact, normal color. Absent: rash Course Vital Signs 03/16/22 03/16/22 03/16/22 00:24 06:31 09:32 Temperature 98.3 F Pulse Rate 64 59 L 63 Pulse Rate [ Control Analyst ] Respiratory 18 14 15 Rate Blood Pressure 165/77 136/80 155/79 Blood Pressure [Left Arm] O2 Sat by Pulse 96 98 97 Oximetry 03/16/22 03/16/22 03/16/22 14:03 14:57 18:36 Temperature 100.5 F H 98.4 F Pulse Rate 65 Pulse Rate [ 63 62 Control Analyst ] Respiratory 15 14 16 Rate Blood Pressure 153/66 Blood Pressure 161/68 187/66 [Left Arm] O2 Sat by Pulse 95 95 92 L Oximetry - Reevaluation(s) Reevaluation #1: 03/16/22 Record is reviewed Patient has no active bleeding here in the ER Patient informed results questions have been answered Medical Decision Making - Medical Decision Making 76 female to the emergency department for evaluation of blood in her stool. No symptoms of lightheadedness dizziness or weakness. Patient will be admitted for evaluation of moderate bleeding, need for transfusion. Her monitor and sup portive care - Lab Data Result diagrams: 03/16/22 04:04 03/16/22 04:04 Lab Results 03/16/22 03/16/22 03/16/22 Range/Units 04:04 04:04 04:04 WBC 21.9 H (3.8-10.6) k/uL RBC 5.16 (3.80-5.40) m/uL Hgb 15.1 (11.4-16.0) gm/dL Hct 47.7 H (34.0-46.0) % MCV 92.3 (80.0-100.0) fL MCH 29.2 (25.0-35.0) pg MCHC 31.7 (31.0-37.0) g/dL RDW 13.4 (11.5-15.5) % Plt Count 269 (150-450) k/uL MPV 7.1 Neutrophils % 83 % Lymphocytes % 12 % Monocytes % 3 % Eosinophils % 1 % Basophils % 0 % Neutrophils # 18.2 H (1.3-7.7) k/uL Lymphocytes # 2.6 (1.0-4.8) k/uL Monocytes # 0.7 (0-1.0) k/uL Eosinophils # 0.2 (0-0.7) k/uL Basophils # 0.0 (0-0.2) k/uL APTT 24.2 (22.0-30.0) sec Sodium 134 L (137-145) mmol/L Potassium 4.4 (3.5-5.1) mmol/L Chloride 99 (98-107) mmol/L Carbon Dioxide 21 L (22-30) mmol/L Anion Gap 14 mmol/L BUN 12 (7-17) mg/dL Creatinine 0.65 (0.52-1.04) mg/dL Est GFR (CKD-EPI)AfAm >90 (>60 ml/min/1.73 sqM) Est GFR (CKD-EPI)NonAf 87 (>60 ml/min/1.73 sqM) Glucose 157 H (74-99) mg/dL Calcium 9.1 (8.4-10.2) mg/dL Magnesium 2.1 (1.6-2.3) mg/dL Total Bilirubin 0.8 (0.2-1.3) mg/dL AST 46 H (14-36) U/L ALT 50 H (4-34) U/L Alkaline Phosphatase 105 (38-126) U/L Ammonia (<30) umol/L Troponin I (0.000-0.034) ng/mL Total Protein 8.1 (6.3-8.2) g/dL Albumin 5.0 (3.5-5.0) g/dL Lipase 22 L (23-300) U/L 03/16/22 03/16/22 Range/Units 04:04 04:04 WBC (3.8-10.6) k/uL RBC (3.80-5.40) m/uL Hgb (11.4-16.0) gm/dL Hct (34.0-46.0) % MCV (80.0-100.0) fL MCH (25.0-35.0) pg MCHC (31.0-37.0) g/dL RDW (11.5-15.5) % Plt Count (150-450) k/uL MPV Neutrophils % % Lymphocytes % % Monocytes % % Eosinophils % % Basophils % % Neutrophils # (1.3-7.7) k/uL Lymphocytes # (1.0-4.8) k/uL Monocytes # (0-1.0) k/uL Eosinophils # (0-0.7) k/uL Basophils # (0-0.2) k/uL APTT (22.0-30.0) sec Sodium (137-145) mmol/L Potassium (3.5-5.1) mmol/L Chloride (98-107) mmol/L Carbon Dioxide (22-30) mmol/L Anion Gap mmol/L BUN (7-17) mg/dL Creatinine (0.52-1.04) mg/dL Est GFR (CKD-EPI)AfAm (>60 ml/min/1.73 sqM) Est GFR (CKD-EPI)NonAf (>60 ml/min/1.73 sqM) Glucose (74-99) mg/dL Calcium (8.4-10.2) mg/dL Magnesium (1.6-2.3) mg/dL Total Bilirubin (0.2-1.3) mg/dL AST (14-36) U/L ALT (4-34) U/L Alkaline Phosphatase (38-126) U/L Ammonia <9 (<30) umol/L Troponin I <0.012 (0.000-0.034) ng/mL Total Protein (6.3-8.2) g/dL Albumin (3.5-5.0) g/dL Lipase (23-300) U/L Disposition Clinical Impression: Lower gastrointestinal hemorrhage, Hematochezia Disposition: [facility] Condition: Serious Is patient prescribed a controlled substance at d/c from ED?: No Time of Disposition: 05:30
[2022-03-16 04:17] LABS: Basophils % (A) 0 %; Eosinophils # (A) 0.2 k/uL (0-0.7); Eosinophils % (A) 1 %; HCT 47.7 % (34.0-46.0); HGB 15.1 gm/dL (11.4-16.0); Lymphocytes # (A) 2.6 k/uL (1.0-4.8); Lymphocytes % (A) 12 %; MCH 29.2 pg (25.0-35.0); MCHC 31.7 g/dL (31.0-37.0); MCV 92.3 fL (80.0-100.0); Mean Platelet Volume 7.1; Monocytes # (A) 0.7 k/uL (0-1.0); Monocytes % (A) 3 %; Neutrophils # (A) 18.2 k/uL (1.3-7.7); Neutrophils % (A) 83 %; Platelet Count 269 k/uL (150-450); RBC 5.16 m/uL (3.80-5.40); RDW 13.4 % (11.5-15.5); WBC 21.9 k/uL (3.8-10.6)
[2022-03-16 04:30] LABS: ALT 50 U/L (4-34); AST 46 U/L (14-36); African American GFR (CKD) >90 (>60 ml/min/1.73 sqM); Alkaline Phosphatase 105 U/L (38-126); Anion Gap 14 mmol/L; Blood Urea Nitrogen 12 mg/dL (7-17); Calcium 9.1 mg/dL (8.4-10.2); Carbon Dioxide 21 mmol/L (22-30); Chloride 99 mmol/L (98-107); Glucose 157 mg/dL (74-99); Lipase 22 U/L (23-300); Magnesium 2.1 mg/dL (1.6-2.3); Non-African American GFR(CKD) 87 (>60 ml/min/1.73 sqM); Potassium 4.4 mmol/L (3.5-5.1); Sodium 134 mmol/L (137-145); Total Bilirubin 0.8 mg/dL (0.2-1.3); Total Protein 8.1 g/dL (6.3-8.2)
[2022-03-16] MEDS ORDERED: NALOXONE 0.4 MG/ML 1 ML VIAL IV PRN (05:28)
[2022-03-16] MEDS ORDERED: IOPAMIDOL CONTRAST (ORAL USE) VIAL PO PRN (07:34)
[2022-03-16] MEDS ORDERED: MORPHINE SULFATE 2 MG/ML SYRINGE IVP PRN (07:35)
[2022-03-16] MEDS ORDERED: ACETAMINOPHEN TAB 325 MG TAB PO PRN (07:35)
--- NOTE | 2022-03-16 07:37 | P.HPIM ---
History of Present Illness This is a pleasant 76 years old female with past medical history of GERD and hyperlipidemia, bladder cancer, depression Patient presents because of diarrhea with blood Patient states she went a restaurant yesterday where she noticed sudden onset of vomiting 3, no blood, when she returned home she had 2 bowel movements, first one was normal regular but the second one was just blood as she states Also patient has been complaining of from abdominal cramps, periumbilical, nonradiating about 8/10 in severity associated with nausea. No more vomiting since came into the emergency room She has some chronic dyspnea, also she is complaining of from the distal dizziness but no chest pain, no headache or weakness or numbness, no urinary complaints or urgency. She drinks alcohol socially, no smoking or illicit drugs She states she has history of bipolar and depression but she denies history of seizure. No active symptoms of depression, local and active issue currently, no suicidal ideation She is been complaining of from right knee pain over the last 2 days, she's been taking extra strength Tylenol but no emesis as she explains Vitals are stable Labs showed leukocytosis of 21.9, hemoglobin is 15.1 PTT 24 BMP is unremarkable with normal creatinine and electrolytes Liver enzymes slightly elevated at 46 AST and 50 ALT, bilirubin is normal 0.8. Lipase low at 22. No imaging done in the emergency room Patient was admitted with IV fluids he received an ER as well as Protonix, Zofran and surgery team consult Review of Systems Review of systems CONSTITUTIONAL: No fever, no malaise, no fatigue. HEENT: No recent visual problems or hearing problems. Denied any sore throat. CARDIOVASCULAR: No orthopnea, PND, no palpitations, no syncope. PULMONARY: No shortness of breath, no cough, no hemoptysis. GASTROINTESTINAL: No diarrhea, . Normoactive bowel sounds. NEUROLOGICAL: No headaches, no weakness, no numbness. HEMATOLOGICAL: Denies any bleeding or petechiae. GENITOURINARY: Denies any burning micturition, frequency, or urgency. MUSCULOSKELETAL/RHEUMATOLOGICAL: Denies any joint pain, swelling, or any muscle pain. ENDOCRINE: Denies any polyuria or polydipsia. Past Medical History Past Medical History: Cancer, GERD/Reflux Additional Past Medical History / Comment(s): History of osteopenia and vocal chord disfunction. 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 History of Any Multi-Drug Resistant Organisms: None Reported Past Surgical History: Bladder Surgery, Joint Replacement, Orthopedic Surgery Additional Past Surgical History / Comment(s): 2 births natural, bladder cancer Past Psychological History: Anxiety, Depression Smoking Status: Never smoker Past Alcohol Use History: Occasional Past Drug Use History: None Reported - Past Family History Mother Family Medical History: No Reported History Additional Family Medical History / Comment(s): Maternal aunt had breast cancer. Father Additional Family Medical History / Comment(s): ALS. Medications and Allergies Home Medications Medication Instructions Recorded Confirmed Type ALPRAZolam [ALPRAZolam XR] 1 mg PO BID 01/06/18 04/23/18 History Aspirin [Children's Aspirin] 81 mg PO DAILY 01/06/18 04/23/18 History Atorvastatin [Lipitor] 10 mg PO DAILY 01/06/18 04/23/18 History Ergocalciferol (Vitamin D2) 50,000 unit PO Q7D 01/06/18 04/23/18 History [Vitamin D2] lamoTRIgine [LaMICtal] 75 mg PO HS 01/06/18 04/23/18 History traZODone HCL [TraZODone HCl] 50 mg PO HS 01/06/18 04/23/18 History PARoxetine [Paxil] 40 mg PO DAILY 04/22/18 04/23/18 History lamoTRIgine [LaMICtal] 50 mg PO DAILY 04/22/18 04/23/18 History PARoxetine HCL [Paxil] 40 mg PO DAILY #14 tab 04/23/18 Rx Allergies Allergy/AdvReac Type Severity Reaction Status Date / Time Sulfa (Sulfonamide Allergy Swelling Verified 03/16/22 00:26 Antibiotics) codeine AdvReac Rash/Hives Verified 03/16/22 00:26 Physical Exam Vitals: Vital Signs Temp Pulse Resp BP Pulse Ox 03/16/22 06:31 59 L 14 136/80 98 03/16/22 00:24 98.3 F 64 18 165/77 96 Intake and Output 03/15/22 03/15/22 03/16/22 14:59 22:59 06:59 Other: Weight 72.575 kg GENERAL: The patient is alert and oriented x3, not in any acute distress. Well developed, well nourished. HEENT: Pupils are round and equally reacting to light. EOMI. No scleral icterus. No conjunctival pallor. Normocephalic, atraumatic. No pharyngeal erythema. No thyromegaly. CARDIOVASCULAR: S1 and S2 present. No murmurs, rubs, or gallops. PULMONARY: Chest is clear to auscultation, no wheezing or crackles. -ABDOMEN: Soft, nontender, mild periumbilical tenderness and the lesser extent left lower quadrant tenderness, no guarding or rebound tenderness, normoactive bowel sounds. No palpable organomegaly. MUSCULOSKELETAL: No joint swelling or deformity. EXTREMITIES: No cyanosis, clubbing, or pedal edema. NEUROLOGICAL: Gross neurological examination did not reveal any focal deficits. SKIN: No rashes. no petechiae. Results CBC & Chem 7: 03/16/22 04:04 03/16/22 04:04 Labs: Abnormal Lab Results - Last 24 Hours (Table) 03/16/22 03/16/22 Range/Units 04:04 04:04 WBC 21.9 H (3.8-10.6) k/uL Hct 47.7 H (34.0-46.0) % Neutrophils # 18.2 H (1.3-7.7) k/uL Sodium 134 L (137-145) mmol/L Carbon Dioxide 21 L (22-30) mmol/L Glucose 157 H (74-99) mg/dL AST 46 H (14-36) U/L ALT 50 H (4-34) U/L Lipase 22 L (23-300) U/L Assessment and Plan Assessment: Possible mild acute gastroenteritis Blood in stool, rule out acute GI bleed Leukocytosis, rule out infection Mild elevated liver enzymes Hyperlipidemia History of GERD History of depression, not in active tissue Plan: this is a pleasant 76 years old female who presents with diarrhea some blood Continue with IV fluids Monitor hemoglobin and transfuse if hemoglobin less than 7 Protonix IV Surgery team consult Monitor liver enzymes Checked for C. diff Also we'll order CT of the abdomen with oral contrast Continue with bowel rest and pain medication Checked occult blood in stool We'll do urine analysis, chest x-ray and blood culture as well as Labs and medication were reviewed.. Continue same treatment. Continue with symptomatic treatment. Resume home medication. Monitor lytes and vitals. DVT and GI prophylaxis. Further recommendations as per clinical course of the patient DVT prophylaxis: no Subcutaneous heparin, for GI bleed GI Prophylaxis: Ppi Prognosis is guarded
--- NOTE | 2022-03-16 07:37 | XR ---
EXAMINATION TYPE: XR chest 2V DATE OF EXAM: 03/16/2022 COMPARISON: 02/21/2022 HISTORY: Leukocytosis TECHNIQUE: Frontal and lateral views of the chest are obtained. FINDINGS: There is no focal air space opacity, pleural effusion, or pneumothorax seen. The cardiac silhouette size is within normal limits. The osseous structures are intact. IMPRESSION: No acute cardiopulmonary process.
[2022-03-16] MEDS: SODIUM CHLORIDE 0.9% 1,000 ML IV SCH ×2 (08:02→19:48)
[2022-03-16] MEDS: PANTOPRAZOLE 40 MG/10 ML VIAL IVP SCH (08:03)
--- NOTE | 2022-03-16 08:06 | CT ---
EXAMINATION TYPE: CT abdomen pelvis wo con DATE OF EXAM: 03/16/2022 COMPARISON: 05/31/2019 HISTORY: Bloody stools CT DLP: 595.1 mGycm Automated exposure control for dose reduction was used. TECHNIQUE: Helical acquisition of images was performed from the lung bases through the pelvis. FINDINGS: The lung bases are clear. There is no pericholecystic fluid, gallbladder wall thickening, distention gallstones. There is no bi liary ductal dilatation. There is no focal mass or organomegaly involving the liver, pancreas, spleen or adrenal glands. There is no renal calcification or stenosis. Caliber the abdominal aorta is normal for age. The bowel loops are normal in caliber and there is no evidence of obstruction. There is mild hazy density involving the pericolic adjacent to the descending and sigmoid colon regio n question diverticulitis or colitis. There is no free intraperitoneal air or fluid. There is no pelvic mass or adenopathy. The osseous structures are intact. IMPRESSION: Pericolic mesenteric inflammation surrounding the descending and sigmoid colon raising the question o f diverticulitis or colitis. There is no bowel obstruction. There is no free intraperitoneal air or f luid.
[2022-03-16] MEDS: ONDANSETRON 4 MG/2 ML VIAL IVP PRN ×2 (09:25→23:04)
[2022-03-16 10:35] LABS: Amorphous Sediment,Urine Rare /hpf; Appearance,Urine Clear (Clear); Bilirubin,Urine Negative (Negative); Blood,Urine Negative (Negative); Color,Urine Yellow; Glucose,Urine (UA) Trace (Negative); Ketones,Urine 1+ (Negative); Leukocyte Esterase,Urine Negative (Negative); Mucus,Urine Occasional /hpf; Nitrite,Urine Negative (Negative); Protein,Urine 1+ (Negative); RBC,Urine 1 /hpf (0-5); Specific Gravity,Urine 1.022 (1.001-1.035); Squamous Epithelial Cell,Urine 3 /hpf (0-4); Urobilinogen,Urine <2.0 mg/dL (<2.0); WBC,Urine 2 /hpf (0-5)
[2022-03-16] MEDS ORDERED: PEG 3350 (236 GM/BTL) + LYTES 4,000 ML BOTTLE PO ONE (11:30)
[2022-03-16] MEDS: PIPERACILLIN-TAZOBACTAM 3.375 GM in SODIUM CHLORIDE 0.9% 100 ML IVPB SCH ×2 (13:23→19:49)
--- NOTE | 2022-03-16 13:24 | P.GSCN ---
History of Present Illness Consult date: 03/16/22 Reason for Consult: GI bleed History of present illness: This a 76-year-old female who states she had several large bowel movements. Patient states the bowel movements were completely made of blood. Patient denies a significant abdominal pain. Past Medical History Past Medical History: Cancer, GERD/Reflux Additional Past Medical History / Comment(s): History of osteopenia and vocal chord disfunction. 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 History of Any Multi-Drug Resistant Organisms: None Reported Past Surgical History: Bladder Surgery, Joint Replacement, Orthopedic Surgery Additional Past Surgical History / Comment(s): 2 births natural, bladder cancer Past Psychological History: Anxiety, Depression Smoking Status: Never smoker Past Alcohol Use History: Occasional Past Drug Use History: None Reported - Past Family History Mother Family Medical History: No Reported History Additional Family Medical History / Comment(s): Maternal aunt had breast cancer. Father Additional Family Medical History / Comment(s): ALS. Medications and Allergies Home Medications Medication Instructions Recorded Confirmed Type ALPRAZolam [ALPRAZolam XR] 1 mg PO BID 01/06/18 04/23/18 History Aspirin [Children's Aspirin] 81 mg PO DAILY 01/06/18 04/23/18 History Atorvastatin [Lipitor] 10 mg PO DAILY 01/06/18 04/23/18 History Ergocalciferol (Vitamin D2) 50,000 unit PO Q7D 01/06/18 04/23/18 History [Vitamin D2] lamoTRIgine [LaMICtal] 75 mg PO HS 01/06/18 04/23/18 History traZODone HCL [TraZODone HCl] 50 mg PO HS 01/06/18 04/23/18 History PARoxetine [Paxil] 40 mg PO DAILY 04/22/18 04/23/18 History lamoTRIgine [LaMICtal] 50 mg PO DAILY 04/22/18 04/23/18 History PARoxetine HCL [Paxil] 40 mg PO DAILY #14 tab 04/23/18 Rx Allergies Allergy/AdvReac Type Severity Reaction Status Date / Time Sulfa (Sulfonamide Allergy Swelling Verified 03/16/22 00:26 Antibiotics) codeine AdvReac Rash/Hives Verified 03/16/22 00:26 Surgical - Exam Vital Signs Temp Pulse Resp BP Pulse Ox 98.3 F 64 18 165/77 96 03/16/22 00:24 03/16/22 00:24 03/16/22 00:24 03/16/22 00:24 03/16/22 00:24 - General well developed, well nourished, no distress - Eyes PERRL - ENT normal pinna - Neck no masses - Respiratory normal expansion - Cardiovascular Rhythm: regular - Abdomen Abdomen: soft, non tender Results - Labs 03/16/22 04:04 03/16/22 04:04 Abnormal Lab Results - Last 24 Hours (Table) 03/16/22 03/16/22 03/16/22 Range/Units 04:04 04:04 07:00 WBC 21.9 H (3.8-10.6) k/uL Hct 47.7 H (34.0-46.0) % Neutrophils # 18.2 H (1.3-7.7) k/uL Sodium 134 L (137-145) mmol/L Carbon Dioxide 21 L (22-30) mmol/L Glucose 157 H (74-99) mg/dL AST 46 H (14-36) U/L ALT 50 H (4-34) U/L Lipase 22 L (23-300) U/L Urine Protein (Negative) Urine Glucose (UA) (Negative) Urine Ketones (Negative) Amorphous Sediment (None) /hpf Urine Mucus (None) /hpf Stool Occult Blood Positive H (Negative) 03/16/22 Range/Units 08:15 WBC (3.8-10.6) k/uL Hct (34.0-46.0) % Neutrophils # (1.3-7.7) k/uL Sodium (137-145) mmol/L Carbon Dioxide (22-30) mmol/L Glucose (74-99) mg/dL AST (14-36) U/L ALT (4-34) U/L Lipase (23-300) U/L Urine Protein 1+ H (Negative) Urine Glucose (UA) Trace H (Negative) Urine Ketones 1+ H (Negative) Amorphous Sediment Rare H (None) /hpf Urine Mucus Occasional H (None) /hpf Stool Occult Blood (Negative) Diabetes panel 03/16/22 Range/Units 04:04 Sodium 134 L (137-145) mmol/L Potassium 4.4 (3.5-5.1) mmol/L Chloride 99 (98-107) mmol/L Carbon Dioxide 21 L (22-30) mmol/L BUN 12 (7-17) mg/dL Creatinine 0.65 (0.52-1.04) mg/dL Glucose 157 H (74-99) mg/dL Calcium 9.1 (8.4-10.2) mg/dL AST 46 H (14-36) U/L ALT 50 H (4-34) U/L Alkaline Phosphatase 105 (38-126) U/L Total Protein 8.1 (6.3-8.2) g/dL Albumin 5.0 (3.5-5.0) g/dL Calcium panel 03/16/22 Range/Units 04:04 Calcium 9.1 (8.4-10.2) mg/dL Albumin 5.0 (3.5-5.0) g/dL Pituitary panel 03/16/22 Range/Units 04:04 Sodium 134 L (137-145) mmol/L Potassium 4.4 (3.5-5.1) mmol/L Chloride 99 (98-107) mmol/L Carbon Dioxide 21 L (22-30) mmol/L BUN 12 (7-17) mg/dL Creatinine 0.65 (0.52-1.04) mg/dL Glucose 157 H (74-99) mg/dL Calcium 9.1 (8.4-10.2) mg/dL Adrenal panel 03/16/22 Range/Units 04:04 Sodium 134 L (137-145) mmol/L Potassium 4.4 (3.5-5.1) mmol/L Chloride 99 (98-107) mmol/L Carbon Dioxide 21 L (22-30) mmol/L BUN 12 (7-17) mg/dL Creatinine 0.65 (0.52-1.04) mg/dL Glucose 157 H (74-99) mg/dL Calcium 9.1 (8.4-10.2) mg/dL Total Bilirubin 0.8 (0.2-1.3) mg/dL AST 46 H (14-36) U/L ALT 50 H (4-34) U/L Alkaline Phosphatase 105 (38-126) U/L Total Protein 8.1 (6.3-8.2) g/dL Albumin 5.0 (3.5-5.0) g/dL Assessment and Plan Assessment: GI bleed. Patient will undergo colonoscopy and gastroscopy in the a.m.
[2022-03-17] MEDS: PIPERACILLIN-TAZOBACTAM 3.375 GM in SODIUM CHLORIDE 0.9% 100 ML IVPB SCH ×3 (03:34→20:00)
[2022-03-17] MEDS: PANTOPRAZOLE 40 MG/10 ML VIAL IVP SCH (07:19)
[2022-03-17 10:37] LABS: HCT 39.6 % (37.2-46.3); HGB 12.4 g/dL (12.0-15.0); MCH 29.1 pg (27.0-32.0); MCHC 31.3 g/dL (32.0-37.0); Mean Platelet Volume 9.8 fL (9.5-12.2); NRBC Per 100 WBC 0 /100 WBCS (0.0-0.0); Platelet Count 201 X 10*3/uL (140-440); RBC 4.26 X 10*6/uL (4.10-5.20); RDW 14.1 % (11.5-14.5); WBC 21.19 X 10*3/uL (4.50-10.00)
[2022-03-17 11:16] LABS: Basophils # (A) 0.05 X 10*3/uL (0.00-0.10); Basophils % (A) 0.2 %; Eosinophils # (A) 0 X 10*3/uL (0.04-0.35); Eosinophils % (A) 0 %; Immature Grans, Automated 0.4 %; Lymphocytes # (A) 3.11 X 10*3/uL (0.90-5.00); Lymphocytes % (A) 14.7 %; Magnesium 2.2 mg/dL (1.5-2.4); Monocytes # (A) 1.61 X 10*3/uL (0.20-1.00); Monocytes % (A) 7.6 %; Neutrophils # (A) 16.34 X 10*3/uL (1.80-7.70); Neutrophils % (A) 77.1 %
[2022-03-17 11:17] LABS: ALT 37 U/L (8-44); AST 32 U/L (13-35); African American GFR (CKD) 86.3 (60.0-200.0); Albumin 3.8 g/dL (3.8-4.9); Albumin/Globulin Ratio 1.76 (1.60-3.17); Alkaline Phosphatase 83 U/L (41-126); BUN/Creat Ratio 10.74 Ratio (12.00-20.00); Bilirubin, Conjugated <0.20 mg/dL (0.20-0.40); Blood Urea Nitrogen 8.4 mg/dL (9.0-27.0); Calcium 7.6 mg/dL (8.7-10.3); Carbon Dioxide 21.1 mmol/L (20.0-27.5); Chloride 105 mmol/L (96-109); Globulin 2.1 g/dL (1.6-3.3); Glucose 121 mg/dL (70-110); Non-African American GFR(CKD) 74.5 (60.0-200.0); Potassium 3.3 mmol/L (3.5-5.5); RBC Morphology NORMAL; Sodium 141 mmol/L (135-145); Total Protein 5.9 g/dL (6.2-8.2)
[2022-03-17] MEDS ORDERED: LIDOCAINE 2% INJ 20 MG/ML (2 ML VIAL) ONE (12:09)
[2022-03-17] MEDS ORDERED: PROPOFOL 10 MG/ML 20 ML VIAL IV ONE (12:09)
[2022-03-17] MEDS ORDERED: IV FLUID CONTINUATION 1,000 ML IV ONE ×2 (12:13)
--- NOTE | 2022-03-17 12:34 | P.OP ---
Date of Procedure: 03/17/22 Preoperative Diagnosis: GI bleed Postoperative Diagnosis: Antral gastritis Moderate size hiatal hernia Mild esophagitis Left colon inflammation pathology pending Procedure(s) Performed: EGD Colonoscopy Anesthesia: MAC Surgeon: Sharath Martinez Pathology: other (Antrum, esophagus, left colon) Condition: stable Disposition: PACU Description of Procedure: The patient's placed on the endoscopy table in the lateral position. She received IV sedation. The gastro-/oropharynx passed in the esophagus into the stomach. Scope was placed through the pylorus. The first and second portion of the duodenum appeared normal. Then brought back the antrum this appeared mildly inflamed. A biopsies performed. The scope was then retroflexed and the remainder of the stomach appeared normal. Patient had a moderate size hiatal hernia. The GE junction was at 38 cm. The distal esophagus appeared mildly inflamed a biopsies performed. The proximal esophagus appeared normal. The scope was then withdrawn for patient. Next digital rectal exam was performed. There was some bloody mucousy stool seen. The patient had the colonoscope was placed in the rectum and advanced the colon. The bowel prep was very poor. There was some bloody mucosa mucousy discharge. In the area the left colon appeared to be inflammation. This area was biopsied the forcep. Due to the poor prep it was decided to not advance scope any further. Scope withdrawn. The inflammation left colon was visualized. Scope was brought back the sigmoid colon appeared minimally inflamed. The rectum appeared normal. Scope withdrawn for patient.
[2022-03-17] MEDS ORDERED: POTASSIUM CHLORIDE ER 20 MEQ TAB.ER PO STA (15:30)
[2022-03-17] MEDS ORDERED: hydrALAZINE HCL 20 MG/ML 1 ML VIAL IVP PRN (15:47)
[2022-03-17] MEDS ORDERED: PARoxetine 20 MG TAB PO SCH (16:00)
[2022-03-17] MEDS: ALPRAZolam 0.25 MG TAB PO SCH ×2 (16:26→20:00)
--- NOTE | 2022-03-17 17:12 | P.PN ---
Subjective Progress Note Date: 03/17/22 This is a pleasant 76 years old female with past medical history of GERD and hyperlipidemia, bladder cancer, depression Patient presents because of diarrhea with blood Patient states she went a restaurant yesterday where she noticed sudden onset of vomiting 3, no blood, when she returned home she had 2 bowel movements, first one was normal regular but the second one was just blood as she states Also patient has been complaining of from abdominal cramps, periumbilical, nonradiating about 8/10 in severity associated with nausea. No more vomiting since came into the emergency room She has some chronic dyspnea, also she is complaining of from the distal dizziness but no chest pain, no headache or weakness or numbness, no urinary complaints or urgency. She drinks alcohol socially, no smoking or illicit drugs She states she has history of bipolar and depression but she denies history of seizure. No active symptoms of depression, local and active issue currently, no suicidal ideation She is been complaining of from right knee pain over the last 2 days, she's been taking extra strength Tylenol but no emesis as she explains Vitals are stable Labs showed leukocytosis of 21.9, hemoglobin is 15.1 PTT 24 BMP is unremarkable with normal creatinine and electrolytes Liver enzymes slightly elevated at 46 AST and 50 ALT, bilirubin is normal 0.8. Lipase low at 22. No imaging done in the emergency room Patient was admitted with IV fluids he received an ER as well as Protonix, Zofran and surgery team consult 03/17/2022 Patient is seen and evaluated this morning prior to EGD/colonoscopy. Patient reports she tolerated the prep well and reports her stool was clear prior to the procedure. Will await surgical report. Patient WBC remains elevated at 21.19 and hemoglobin is stable at 12.4. Platelets are 201. Sodium is 141 with a potassium of 3.3 and will replace per protocol, current creatinine is 0.8. Magnesium is 2.2. Patient's Covid and C. diff testing were negative. Patient denies further abdominal pain and discuss with family along with patient as there was questions and concerns for possible diverticulitis/colitis on CT and is maintained on IV antibiotics and will continue. Recommend repeat labs. Home medications have been discussed and will resume. Patient is afebrile denies nausea or vomiting and tolerating the clear liquids. Patient may potentially also be nothing by mouth at midnight per surgery recommendations. Physical Exam: GENERAL: The patient is alert and oriented x3, not in any acute distress. Well developed, well nourished. HEENT: Pupils are round and equally reacting to light. EOMI. No scleral icterus. No conjunctival pallor. Normocephalic, atraumatic. No pharyngeal erythema. No thyromegaly. CARDIOVASCULAR: S1 and S2 present. No murmurs, rubs, or gallops. PULMONARY: Chest is clear to auscultation, no wheezing or crackles. ABDOMEN: Soft, nontender, mild periumbilical tenderness and the lesser extent left lower quadrant tenderness, no guarding or rebound tenderness, normoactive bowel sounds. No palpable organomegaly. MUSCULOSKELETAL: No joint swelling or deformity. EXTREMITIES: No cyanosis, clubbing, or pedal edema. NEUROLOGICAL: Gross neurological examination did not reveal any focal deficits. SKIN: No rashes. no petechiae. Assessment: Possible mild acute gastroenteritis Blood in stool, rule out acute GI bleed Leukocytosis, rule out infection Mild elevated liver enzymes Hyperlipidemia History of GERD History of depression GI prophylaxis DVT prophylaxis Full code Plan: Patient presented with diarrhea and blood in the stool and vomiting which has resolved. Patient underwent bowel prep and scheduled for EGD/colonoscopy today will await surgical report. Continue with IV fluids along with IV antibiotics and will follow-up with repeat labs as white blood count remains elevated Monitor hemoglobin and transfuse if hemoglobin less than 7 Protonix IV Continue with bowel rest and pain medication Discuss with surgery about treatment plan moving forward as apparently there was a poor bowel prep and unsure if bringing the patient back for colonoscopy. EGD was done showing mild inflammation and biopsies were obtained. We'll continue the patient on Protonix with follow-up labs in the a.m. and clear liquid diet with nothing by mouth at midnight for possible surgical evaluation again. Ques tions and concerns were answered and explained to the best of my abilities with family and patient at the bedside. The impression and plan of care has been dictated by Keysha Rivera, nurse practitioner as directed. Dr. Shane MD I have performed a history and examination and MDM of this patient, discussed the same with the dictator, and agree with the dictator's assessment and plan as written ,documented as a scribe. Based on total visit time, I have performed more than 50% of the visit. Any additional findings or plans will be noted. Objective - Vital Signs Vital signs: Vital Signs Temp 98.4 F 03/17/22 11:30 Pulse 61 03/17/22 12:51 Resp 16 03/17/22 12:51 BP 159/66 03/17/22 12:51 Pulse Ox 97 03/17/22 12:51 FiO2 Intake & Output 03/16/22 03/17/22 03/17/22 18:59 06:59 18:59 Intake Total 940 200 Balance 940 200 Weight 72.575 kg Intake: IV 200 Intake, IV Titration 440 Amount Piperacillin-Tazobactam 3 200 .375 gm In Sodium Chloride 0.9% 100 ml @ 25 mls/hr IVPB Q8H [facility] Rx#: [id number] Sodium Chloride 0.9% 1, 240 000 ml @ 20 mls/hr IV . Q24H [facility] Rx#:[id number] Oral 500 Other: # Voids 2 # Bowel Movements 5 - Labs CBC & Chem 7: 03/17/22 06:35 03/17/22 06:35 Labs: Abnormal Lab Results - Last 24 Hours (Table) 03/17/22 03/17/22 Range/Units 06:35 06:35 WBC 21.19 H (4.50-10.00) X 10*3/uL MCHC 31.3 L (32.0-37.0) g/dL Immature Gran # 0.08 H (0.00-0.04) X 10*3/uL Neutrophils # 16.34 H (1.80-7.70) X 10*3/uL Monocytes # 1.61 H (0.20-1.00) X 10*3/uL Eosinophils # 0 L (0.04-0.35) X 10*3/uL Potassium 3.3 L (3.5-5.5) mmol/L BUN 8.4 L (9.0-27.0) mg/dL BUN/Creatinine Ratio 10.74 L (12.00-20.00) Ratio Glucose 121 H (70-110) mg/dL Calcium 7.6 L (8.7-10.3) mg/dL Conjugated Bilirubin <0.20 L (0.20-0.40) mg/dL Total Protein 5.9 L (6.2-8.2) g/dL Microbiology - Last 24 Hours (Table) 03/16/22 08:02 Blood Culture - Preliminary Blood No Growth after 24 hours
[2022-03-17] MEDS: FLUTICASONE 110 MCG INHALER INHALATION SCH (19:16)
[2022-03-17] MEDS: LATANOPROST 0.005% OPHTH DROPS 2.5 ML BTL BOTH EYES SCH (19:58)
[2022-03-17] MEDS: lamoTRIgine 100 MG TAB PO SCH (19:59)
[2022-03-17] MEDS: QUEtiapine 25 MG TAB PO SCH (19:59)
[2022-03-17] MEDS: PAXIL 25 MG PO SCH (20:00)
[2022-03-18] MEDS: PIPERACILLIN-TAZOBACTAM 3.375 GM in SODIUM CHLORIDE 0.9% 100 ML IVPB SCH ×3 (03:51→19:44)
[2022-03-18] MEDS: SODIUM CHLORIDE 0.9% 1,000 ML IV SCH (06:20)
[2022-03-18] MEDS: FLUTICASONE 110 MCG INHALER INHALATION SCH ×2 (06:55→19:52)
[2022-03-18 07:26] LABS: Basophils % (A) 0 %; Eosinophils # (A) 0.1 k/uL (0-0.7); Eosinophils % (A) 0 %; HCT 36.7 % (34.0-46.0); Hypochromasia Slight; Lymphocytes # (A) 2.7 k/uL (1.0-4.8); Lymphocytes % (A) 20 %; MCH 30.3 pg (25.0-35.0); MCHC 32.3 g/dL (31.0-37.0); MCV 93.8 fL (80.0-100.0); Mean Platelet Volume 7.7; Monocytes # (A) 0.7 k/uL (0-1.0); Monocytes % (A) 5 %; Neutrophils # (A) 9.8 k/uL (1.3-7.7); Neutrophils % (A) 72 %; Platelet Count 171 k/uL (150-450); RBC 3.91 m/uL (3.80-5.40); RDW 13.6 % (11.5-15.5); WBC 13.6 k/uL (3.8-10.6)
[2022-03-18 07:33] LABS: African American GFR (CKD) >90 (>60 ml/min/1.73 sqM); Anion Gap 6 mmol/L; Blood Urea Nitrogen 4 mg/dL (7-17); Calcium 7.3 mg/dL (8.4-10.2); Carbon Dioxide 24 mmol/L (22-30); Chloride 110 mmol/L (98-107); Glucose 94 mg/dL (74-99); Non-African American GFR(CKD) 89 (>60 ml/min/1.73 sqM); Potassium 3.7 mmol/L (3.5-5.1); Sodium 140 mmol/L (137-145)
[2022-03-18 07:34] LABS: HGB 11.8 gm/dL (11.4-16.0)
[2022-03-18] MEDS: ALPRAZolam 0.25 MG TAB PO SCH ×2 (09:24→21:19)
[2022-03-18] MEDS: PANTOPRAZOLE 40 MG/10 ML VIAL IVP SCH (09:24)
[2022-03-18] MEDS: XOPENEX INHALATION SCH ×3 (11:21→19:51)
--- NOTE | 2022-03-18 15:19 | P.PN ---
Subjective Progress Note Date: 03/18/22 CHIEF COMPLAINT: GI bleed HISTORY OF PRESENT ILLNESS: Patient is status post EGD and colonoscopy results showing antral gastritis, moderate size hiatal hernia, mild esophagitis and left colon inflammation status post biopsy. Colonoscopy had poor bowel prep. Patient reports having bowel movements that still have blood and stool particles. She denies any abdominal pain. Afebrile. White count has decreased from 21-13 hemoglobin 12.4 down to 11.8. She's currently on clear liquid diet. Patient seen and examined with Dr. enriquez PHYSICAL EXAM: VITAL SIGNS: Reviewed. GENERAL: Well-developed in no acute distress. HEENT: No sclera icterus. Extraocular movements grossly intact. Moist buccal mucosa. Head is atraumatic, normocephalic. ABDOMEN: Soft. Nondistended. Nontender. NEUROLOGIC: Alert and oriented. Cranial nerves II through XII grossly intact. ASSESSMENT: 1. Acute GI bleed with bright red blood 2. Status post EGD and colonoscopy showing antral gastritis, moderate size hiatal hernia, mild esophagitis and left colon inflammation PLAN: -Continue to monitor for signs symptoms of bleeding -Continue antibiotics for the colon inflammation and leukocytosis. Possible colitis -Follow up on pathology results -Advance diet to full liquids -Patient will need a repeat colonoscopy in a few weeks after her colon inflammation has improved -Dr. enriquez did discuss with patient and patient's family EGD results and repeating colonoscopy in a few weeks at bedside Physician Assembler Seat note has been reviewed by physician. Signing provider agrees with the documented findings, assessment, and plan of care. Objective - Vital Signs Vital signs: Vital Signs Temp 98.0 F 03/18/22 11:24 Pulse 55 L 03/18/22 11:24 Resp 16 03/18/22 11:24 BP 107/53 03/18/22 11:24 Pulse Ox 94 L 03/18/22 11:24 FiO2 Intake & Output 03/17/22 03/18/22 03/18/22 18:59 06:59 18:59 Intake Total 200 440 Balance 200 440 Intake: IV 200 Intake, IV Titration 440 Amount Piperacillin-Tazobactam 3 200 .375 gm In Sodium Chloride 0.9% 100 ml @ 25 mls/hr IVPB Q8H [facility] Rx#: [id number] Sodium Chloride 0.9% 1, 240 000 ml @ 20 mls/hr IV . Q24H [facility] Rx#:[id number] Other: # Voids 2 2 # Bowel Movements 1 - Labs CBC & Chem 7: 03/18/22 06:43 03/18/22 06:43 Labs: Abnormal Lab Results - Last 24 Hours (Table) 03/18/22 03/18/22 Range/Units 06:43 06:43 WBC 13.6 H (3.8-10.6) k/uL Neutrophils # 9.8 H (1.3-7.7) k/uL Chloride 110 H (98-107) mmol/L BUN 4 L (7-17) mg/dL Calcium 7.3 L (8.4-10.2) mg/dL Microbiology - Last 24 Hours (Table) 03/16/22 08:02 Blood Culture - Preliminary Blood No Growth after 48 hours
[2022-03-18] MEDS: ALBUTEROL NEBULIZED 2.5 MG/3 ML INHALATION SCH (19:53)
[2022-03-18] MEDS ORDERED: MONTELUKAST 10 MG TAB PO SCH (21:00)
[2022-03-18] MEDS: PAXIL 25 MG PO SCH (21:19)
[2022-03-18] MEDS: QUEtiapine 25 MG TAB PO SCH (21:19)
[2022-03-18] MEDS: LATANOPROST 0.005% OPHTH DROPS 2.5 ML BTL BOTH EYES SCH (21:19)
[2022-03-18] MEDS: lamoTRIgine 100 MG TAB PO SCH (21:19)
[2022-03-19] MEDS: XOPENEX INHALATION SCH ×3 (01:54→12:28)
[2022-03-19] MEDS: ALBUTEROL NEBULIZED 2.5 MG/3 ML INHALATION SCH ×3 (01:54→12:29)
[2022-03-19] MEDS: PIPERACILLIN-TAZOBACTAM 3.375 GM in SODIUM CHLORIDE 0.9% 100 ML IVPB SCH ×2 (03:44→11:48)
[2022-03-19] MEDS: SODIUM CHLORIDE 0.9% 1,000 ML IV SCH (03:45)
[2022-03-19 04:41] VITALS: RESP 18
[2022-03-19] MEDS: FLUTICASONE 110 MCG INHALER INHALATION SCH (07:29)
[2022-03-19] MEDS: PANTOPRAZOLE 40 MG/10 ML VIAL IVP SCH (08:18)
[2022-03-19] MEDS: ALPRAZolam 0.25 MG TAB PO SCH (08:19)
[2022-03-19] MEDS ORDERED: ATORVASTATIN 20 MG TAB PO SCH (09:00)
[2022-03-19] MEDS ORDERED: amLODIPine 5 MG TAB PO SCH (09:00)
[2022-03-19] MEDS ORDERED: ERGOCALCIFEROL 1,250 MCG (50,000 IU) CAPSULE PO SCH (09:00)
[2022-03-19] MEDS ORDERED: MULTIVITAMINS, THERA 1 EACH TAB PO SCH (09:00)
[2022-03-19 09:16] LABS: Basophils # (A) 0.06 X 10*3/uL (0.00-0.10); Basophils % (A) 0.6 %; Eosinophils # (A) 0.06 X 10*3/uL (0.04-0.35); Eosinophils % (A) 0.6 %; HCT 38.3 % (37.2-46.3); HGB 11.6 g/dL (12.0-15.0); Immature Grans, Automated 0.7 %; Lymphocytes # (A) 3.01 X 10*3/uL (0.90-5.00); Lymphocytes % (A) 28.2 %; MCH 28.6 pg (27.0-32.0); MCHC 30.3 g/dL (32.0-37.0); MCV 94.3 fL (80.0-97.0); Mean Platelet Volume 9.6 fL (9.5-12.2); Monocytes # (A) 0.86 X 10*3/uL (0.20-1.00); Monocytes % (A) 8.1 %; NRBC Per 100 WBC 0 /100 WBCS (0.0-0.0); Neutrophils % (A) 61.8 %; Platelet Count 198 X 10*3/uL (140-440); RBC 4.06 X 10*6/uL (4.10-5.20); RDW 14.3 % (11.5-14.5); WBC 10.66 X 10*3/uL (4.50-10.00)
--- NOTE | 2022-03-19 10:06 | P.PN ---
Subjective Progress Note Date: 03/18/22 This is a pleasant 76 years old female with past medical history of GERD and hyperlipidemia, bladder cancer, depression Patient presents because of diarrhea with blood Patient states she went a restaurant yesterday where she noticed sudden onset of vomiting 3, no blood, when she returned home she had 2 bowel movements, first one was normal regular but the second one was just blood as she states Also patient has been complaining of from abdominal cramps, periumbilical, nonradiating about 8/10 in severity associated with nausea. No more vomiting since came into the emergency room She has some chronic dyspnea, also she is complaining of from the distal dizziness but no chest pain, no headache or weakness or numbness, no urinary complaints or urgency. She drinks alcohol socially, no smoking or illicit drugs She states she has history of bipolar and depression but she denies history of seizure. No active symptoms of depression, local and active issue currently, no suicidal ideation She is been complaining of from right knee pain over the last 2 days, she's been taking extra strength Tylenol but no emesis as she explains Vitals are stable Labs showed leukocytosis of 21.9, hemoglobin is 15.1 PTT 24 BMP is unremarkable with normal creatinine and electrolytes Liver enzymes slightly elevated at 46 AST and 50 ALT, bilirubin is normal 0.8. Lipase low at 22. No imaging done in the emergency room Patient was admitted with IV fluids he received an ER as well as Protonix, Zofran and surgery team consult 03/17/2022 Patient is seen and evaluated this morning prior to EGD/colonoscopy. Patient reports she tolerated the prep well and reports her stool was clear prior to the procedure. Will await surgical report. Patient WBC remains elevated at 21.19 and hemoglobin is stable at 12.4. Platelets are 201. Sodium is 141 with a potassium of 3.3 and will replace per protocol, current creatinine is 0.8. Magnesium is 2.2. Patient's Covid and C. diff testing were negative. Patient denies further abdominal pain and discuss with family along with patient as there was questions and concerns for possible diverticulitis/colitis on CT and is maintained on IV antibiotics and will continue. Recommend repeat labs. Home medications have been discussed and will resume. Patient is afebrile denies nausea or vomiting and tolerating the clear liquids. Patient may potentially also be nothing by mouth at midnight per surgery recommendations. 03/18/2022 Patient is seen and evaluated in follow-up this morning with general surgery following. No plans for repeat colonoscopy at this time and will be planned for outpatient in the next 3-4 weeks after a course of antibiotics and inflammation has resolved. Patient reports to feeling better with no further episodes of abdominal pain associated with nausea or vomiting. Diet slowly being advanced and tolerating. Patient has been resumed on her home medications. Electrolytes were replaced and within normal limits. Patient did have a few specks of old blood noted in her stool and general surgery is following. Biopsies were obtained and preliminary pathology is negative recommending outpatient follow- up. Patient is afebrile denies chest pain or shortness of breath. Patient denies nausea or vomiting and is tolerating diet. Encouraged increased activity as tolerated and will follow-up with repeat labs in the a.m. and continue on gentle IV hydration. Review of systems: Constitutional: No reports of fatigue, fever, or chills Cardiovascular: No reports of chest pain or palpitations Respiratory: No reports of shortness of breath or cough GI: No reports of nausea, vomiting, or diarrhea : No reports of dysuria or retention Neurovascular: No reports of weakness or numbness All medications have been reviewed Physical Exam: GENERAL: The patient is alert and oriented x3, not in any acute distress. Well developed, well nourished. HEENT: Pupils are round and equally reacting to light. EOMI. No scleral icterus. No conjunctival pallor. Normocephalic, atraumatic. No pharyngeal erythema. No thyromegaly. CARDIOVASCULAR: S1 and S2 present. No murmurs, rubs, or gallops. PULMONARY: Chest is clear to auscultation, no wheezing or crackles. ABDOMEN: Soft, nontender, no guarding or rebound tenderness, normoactive bowel s ounds. No palpable organomegaly. MUSCULOSKELETAL: No joint swelling or deformity. EXTREMITIES: No cyanosis, clubbing, or pedal edema. NEUROLOGICAL: Gross neurological examination did not reveal any focal deficits. SKIN: No rashes. no petechiae. Assessment: Possible mild acute gastroenteritis Blood in stool, rule out acute GI bleed Leukocytosis, rule out infection Mild elevated liver enzymes Hyperlipidemia History of GERD History of depression GI prophylaxis DVT prophylaxis Full code Plan: Patient presented with diarrhea and blood in the stool and vomiting which has resolved. Patient underwent bowel prep and underwent EGD/colonoscopy was mild inflammation noted on EGD and biopsies were obtained and colonoscopy was a poor prep with a colon. Biopsy obtained recommending follow-up in the next 3-4 weeks outpatient for colonoscopy repeat. Continue with IV fluids along with IV antibiotics and will follow-up with repeat labs as white blood count remains elevated though is trending down will continue antibiotics and repeat labs in the a.m. with possible discharge in 24 hours. Monitor hemoglobin and transfuse if hemoglobin less than 7 Protonix IV The impression and plan of care has been dictated by Keysha Rivera, nurse practitioner as directed. Dr. Shane MD I have performed a history and examination and MDM of this patient, discussed the same with the dictator, and agree with the dictator's assessment and plan as written ,documented as a scribe. Based on total visit time, I have performed more than 50% of the visit. Any additional findings or plans will be noted. Objective - Vital Signs Vital signs: Vital Signs Temp 98.0 F 03/18/22 11:24 Pulse 55 L 03/18/22 11:24 Resp 16 03/18/22 11:24 BP 107/53 03/18/22 11:24 Pulse Ox 94 L 03/18/22 11:24 FiO2 Intake & Output 03/17/22 03/18/22 03/18/22 18:59 06:59 18:59 Intake Total 200 440 Balance 200 440 Intake: IV 200 Intake, IV Titration 440 Amount Piperacillin-Tazobactam 3 200 .375 gm In Sodium Chloride 0.9% 100 ml @ 25 mls/hr IVPB Q8H [facility] Rx#: [id number] Sodium Chloride 0.9% 1, 240 000 ml @ 20 mls/hr IV . Q24H [facility] Rx#:[id number] Other: # Voids 2 2 # Bowel Movements 1 - Labs CBC & Chem 7: 03/19/22 06:23 03/18/22 06:43 Labs: Abnormal Lab Results - Last 24 Hours (Table) 03/18/22 03/18/22 Range/Units 06:43 06:43 WBC 13.6 H (3.8-10.6) k/uL Neutrophils # 9.8 H (1.3-7.7) k/uL Chloride 110 H (98-107) mmol/L BUN 4 L (7-17) mg/dL Calcium 7.3 L (8.4-10.2) mg/dL Microbiology - Last 24 Hours (Table) 03/16/22 08:02 Blood Culture - Preliminary Blood No Growth after 48 hours
--- NOTE | 2022-03-19 11:14 | P.PN ---
Subjective Progress Note Date: 03/19/22 CHIEF COMPLAINT: GI bleed HISTORY OF PRESENT ILLNESS: Patient is status post EGD and colonoscopy results showing antral gastritis, moderate size hiatal hernia, mild esophagitis and left colon inflammation status post biopsy. Colonoscopy had poor bowel prep. Patient denies any abdominal pain. She's had no further bowel movement. Denies any nausea vomiting. Tolerating diet. Afebrile. WBC is down from 13.6-10.66 hemoglobin 11.6 platelets 198 Patient seen and examined with Dr. enriquez PHYSICAL EXAM: VITAL SIGNS: Reviewed. GENERAL: Well-developed in no acute distress. HEENT: No sclera icterus. Extraocular movements grossly intact. Moist buccal mucosa. Head is atraumatic, normocephalic. ABDOMEN: Soft. Nondistended. Nontender. NEUROLOGIC: Alert and oriented. Cranial nerves II through XII grossly intact. ASSESSMENT: 1. Acute GI bleed with bright red blood 2. Status post EGD and colonoscopy showing antral gastritis, moderate size hiatal hernia, mild esophagitis and left colon inflammation PLAN: -Patient can be discharged from surgical standpoint -Recommend discharge with antibiotics -Patient educated if her rectal bleeding restarts to present back to the ER -Patient can continue a regular diet -Patient will need a repeat colonoscopy in a few weeks after her colon infla mmation has improved Physician Winder Operator note has been reviewed by physician. Signing provider agrees with the documented findings, assessment, and plan of care. Objective - Vital Signs Vital signs: Vital Signs Temp 98.6 F 03/19/22 04:40 Pulse 64 03/19/22 04:40 Resp 18 03/19/22 04:40 BP 150/71 03/19/22 04:40 Pulse Ox 94 L 03/19/22 04:40 FiO2 Intake & Output 03/18/22 03/19/22 03/19/22 18:59 06:59 18:59 Intake Total 840 440 Output Total 1 Balance 840 440 -1 Intake: Intake, IV Titration 440 200 Amount Piperacillin-Tazobactam 3 200 200 .375 gm In Sodium Chloride 0.9% 100 ml @ 25 mls/hr IVPB Q8H KAYLENE Rx#: [id number] Sodium Chloride 0.9% 1, 240 000 ml @ 20 mls/hr IV . Q24H KAYLENE Rx#:[id number] Oral 400 240 Output: Urine 1 Other: # Voids 3 1 # Bowel Movements 2 1 - Labs CBC & Chem 7: 03/19/22 06:23 03/18/22 06:43 Labs: Abnormal Lab Results - Last 24 Hours (Table) 03/19/22 Range/Units 06:23 WBC 10.66 H (4.50-10.00) X 10*3/uL RBC 4.06 L (4.10-5.20) X 10*6/uL Hgb 11.6 L (12.0-15.0) g/dL MCHC 30.3 L (32.0-37.0) g/dL Immature Gran # 0.07 H (0.00-0.04) X 10*3/uL Microbiology - Last 24 Hours (Table) 03/16/22 08:02 Blood Culture - Preliminary Blood No Growth after 72 hours
[2022-03-19 13:26] VITALS: BP 137/69; PULSE 60; TEMP 98.7
--- NOTE | 2022-03-22 16:02 | P.DS ---
Providers Date of admission: 03/16/22 05:28 Expected date of discharge: 03/19/22 Attending physician: Ralph Pinto Consults: 03/16/22 06:57 Consult Physician Urgent Consulting Provider: Sharath Martinez Consult Reason/Comments: possible bi bleed Do you want consulting provider notified?: Yes Primary care physician: [facility] Hospital Course: Final diagnosis Possible mild acute gastroenteritis Blood in stool, ruled out acute GI bleed Leukocytosis, possibly secondary to gastroenteritis Mild elevated liver enzymes Hyperlipidemia History of GERD History of depression GI prophylaxis DVT prophylaxis Full code Discharge disposition Patient is being discharged in a stable condition with guarded prognosis to home . Patient will follow-up with Dr. Ortiz in the outpatient setting upon discharge. Patient is to continue with ceftin and flagyl to complete the course. Patient to follow up with Dr. Martinez for outpatient colonoscopy and biopsy results from EGD. Total time taken is greater than 35 minutes. Hospital course This is a 76-year-old female who was recently admitted with abdominal pain, nausea and vomiting and then diarrhea and was being closely monitored. Bloody stools noted and patient with elevated WBC on admission. Patient was started on zosyn and underwent bowel prep and had egd, attempted colonoscopy with DR. Martinez although colonoscopy prep was poor and some inflammation noted so to follow up outpatient is a few weeks for colonoscopy. Wbc trending down and will continue ceftin and flagyl for the next 5 days to complete the course. Script pr ovided for follow up labs in a few days. Hemoglobin is stable with no further bleeding noted. Currently no reports of chest pain, shortness of breath, or palpitations. Patient is afebrile. No reports of nausea or vomiting and patient is tolerating diet. Patient will discharged home today. Physical exam: Gen: This is a 76 year old female, awake, alert and oriented x3. well developed, well nourished HEENT: Head is atraumatic, normocephalic. Pupils equal, round. Sclerae is anicteric. NECK: Supple. No JVD. No lymphadenopathy. No thyromegaly. LUNGS: Clear to auscultation. No wheezes or rhonchi. No intercostal retractions. HEART: Regular rate and rhythm. No murmur. ABDOMEN: Soft. Bowel sounds are present. No masses. No tenderness. EXTREMITIES: No pedal edema. No calf tenderness. NEUROLOGICAL: Patient is awake, alert and oriented x3. Cranial nerves 2 through 12 are grossly intact. Please refer to medication reconciliation sheet for a list of medications. The impression and plan of care has been dictated by Keysha Rivera, Nurse Practitioner as directed. Dr. Shane MD I have performed a history and examination and MDM of this patient, discussed the same with the dictator, and agree with the dictator's assessment and plan as written ,documented as a scribe. Based on total visit time, I have performed more than 50% of the visit. Patient Condition at Discharge: Stable Plan - Discharge Summary Discharge Rx Participant: No New Discharge Prescriptions: New Acetaminophen Tab [Tylenol] 325 mg PO Q6HR PRN tab PRN Reason: Fever And/ Or Pain cefUROXime axetiL [Ceftin] 500 mg PO BID 5 Days #10 tab metroNIDAZOLE [Flagyl] 500 mg PO TID 5 Days #15 tab Continue Ergocalciferol (Vitamin D2) [Vitamin D2] 50,000 unit PO Q14D Latanoprost [Latanoprost 0.005%] 1 drop BOTH EYES HS Bifidobacterium Infantis [Align] 4 mg PO AC-BID Sennosides/Docusate Sodium [Senna-S 8.6-50 mg Tablet] 1 tab PO BID PARoxetine HCL [Paxil Cr] 50 mg PO DAILY Rosuvastatin [Crestor] 10 mg PO DAILY ALPRAZolam [Xanax] 0.125 mg PO HS ALPRAZolam [Xanax] 0.25 mg PO DAILY Denosumab [Prolia] 60 mg SQ Q180D Fluticasone Propionate 110 Mcg [Flovent 110 Mcg Inhaler] 1 puff INHALATION RT-BID QUEtiapine FUMARATE [SEROquel] 25 mg PO HS lamoTRIgine [LaMICtal] 200 mg PO HS Multivit-Min/FA/Lycopen/Lutein [Centrum Silver Tablet] 1 tab PO DAILY Montelukast Sodium [Singulair] 10 mg PO HS Lansoprazole 30 mg PO AC-BID Cranberry Fruit Extract [Cranberry] 500 mg PO DAILY Ubidecarenone [Coenzyme Q10] 200 mg PO DAILY amLODIPine [Norvasc] 5 mg PO DAILY Levalbuterol Hfa Inhaler [Xopenex Hfa Inhaler] 2 puff INHALATION Q6HR Discontinued Aspirin [Children's Aspirin] 81 mg PO DAILY Discharge Medication List Ergocalciferol (Vitamin D2) [Vitamin D2] 50,000 unit PO Q14D 01/06/18 [History] ALPRAZolam [Xanax] 0.125 mg PO HS 03/16/22 [History] ALPRAZolam [Xanax] 0.25 mg PO DAILY 03/16/22 [History] Bifidobacterium Infantis [Align] 4 mg PO AC-BID 03/16/22 [History] Cranberry Fruit Extract [Cranberry] 500 mg PO DAILY 03/16/22 [History] Denosumab [Prolia] 60 mg SQ Q180D 03/16/22 [History] Fluticasone Propionate 110 Mcg [Flovent 110 Mcg Inhaler] 1 puff INHALATION RT- BID 03/16/22 [History] Lansoprazole 30 mg PO AC-BID 03/16/22 [History] Latanoprost [Latanoprost 0.005%] 1 drop BOTH EYES HS 03/16/22 [History] Montelukast Sodium [Singulair] 10 mg PO HS 03/16/22 [History] Multivit-Min/FA/Lycopen/Lutein [Centrum Silver Tablet] 1 tab PO DAILY 03/16/22 [History] PARoxetine HCL [Paxil Cr] 50 mg PO DAILY 03/16/22 [History] QUEtiapine FUMARATE [SEROquel] 25 mg PO HS 03/16/22 [History] Rosuvastatin [Crestor] 10 mg PO DAILY 03/16/22 [History] Sennosides/Docusate Sodium [Senna-S 8.6-50 mg Tablet] 1 tab PO BID 03/16/22 [History] Ubidecarenone [Coenzyme Q10] 200 mg PO DAILY 03/16/22 [History] amLODIPine [Norvasc] 5 mg PO DAILY 03/16/22 [History] lamoTRIgine [LaMICtal] 200 mg PO HS 03/16/22 [History] Levalbuterol Hfa Inhaler [Xopenex Hfa Inhaler] 2 puff INHALATION Q6HR 03/17/22 [History] Acetaminophen Tab [Tylenol] 325 mg PO Q6HR PRN tab 03/19/22 [Rx] cefUROXime axetiL [Ceftin] 500 mg PO BID 5 Days #10 tab 03/19/22 [Rx] metroNIDAZOLE [Flagyl] 500 mg PO TID 5 Days #15 tab 03/19/22 [Rx] Follow up Appointment(s)/Referral(s): Tyron Ortiz MD [Primary Care Provider] - 03/28/22 10:30 am (please bring in all medications to this visit. Patient will be seeing que) Sharath Martinez MD [STAFF PHYSICIAN] - 03/27/22 2:45 pm Ambulatory/Diagnostic Orders: Complete Blood Count w/diff [LAB.AMB] Time Frame: 3 Days, Location: None Selected Patient Instructions/Handouts: Cefuroxime (By mouth), Metronidazole (By mouth), Pantoprazole (By mouth), Rectal Bleeding (DC) Activity/Diet/Wound Care/Special Instructions: Activity Limited until follow-up Follow-up with primary care provider on discharge Continue current diet and slowly advance as tolerated Continue taking medications as prescribed Continue to hold aspirin until follow-up with surgery Follow up with general surgery in one week Recommend repeat labs of CBC in the next 2-3 days Discharge Disposition: HOME SELF-CARE
== END 2022-03-19 14:47 | disposition home or self-care (01) ==
LOC: EC 00:16 → 6NMEDSUR 05:28 → 5NMEDONC 15:20
PROVIDERS: ADMIT Hospitalist; ATTEND Hospitalist
DX: K29.70 Gastritis, unspecified, without bleeding (principal); K21.00 Gastro-esophageal reflux disease with esophagitis, without bleeding; R74.8 Abnormal levels of other serum enzymes; F41.9 Anxiety disorder, unspecified; F32.A Depression, unspecified; E78.5 Hyperlipidemia, unspecified; K52.9 Noninfective gastroenteritis and colitis, unspecified; K31.9 Disease of stomach and duodenum, unspecified; K44.9 Diaphragmatic hernia without obstruction or gangrene; Z79.82 Long term (current) use of aspirin; Z79.899 Other long term (current) drug therapy; Z88.5 Allergy status to narcotic agent; Z88.2 Allergy status to sulfonamides; Z85.51 Personal history of malignant neoplasm of bladder; Z80.3 Family history of malignant neoplasm of breast; Z20.822 Contact with and (suspected) exposure to COVID-19
CPT/HCPCS: 96366 ×6; 96376 ×5; 96365 ×2; 96361; 96375; 99285; 36415; 94640 ×5; 88305; 80053 ×2; 80048; 80076; 82140; 83690; 83735 ×2; 84484; 85025 ×4; 85730; 82272; 81001; 87040; 87324; 87635; 71046; 74176; 45380; 43239; G0378 ×4; J2543 ×4; J2405; J2270; J2704; C9113 ×4; J2001

== ENCOUNTER → 2022-03-21 | Outpatient (CLI) | payer MEDICARE ==
[2022-03-21 22:52] LABS: Basophils # (A) 0.06 X 10*3/uL (0.00-0.10); Basophils % (A) 0.5 %; Eosinophils # (A) 0.07 X 10*3/uL (0.04-0.35); Eosinophils % (A) 0.6 %; HCT 40.6 % (37.2-46.3); HGB 12.9 g/dL (12.0-15.0); Immature Grans, Automated 2.3 %; Lymphocytes # (A) 3.84 X 10*3/uL (0.90-5.00); Lymphocytes % (A) 34.5 %; MCH 29.3 pg (27.0-32.0); MCHC 31.8 g/dL (32.0-37.0); MCV 92.1 fL (80.0-97.0); Mean Platelet Volume 9.4 fL (9.5-12.2); Monocytes # (A) 1.03 X 10*3/uL (0.20-1.00); Monocytes % (A) 9.3 %; NRBC Per 100 WBC 0 /100 WBCS (0.0-0.0); Neutrophils # (A) 5.87 X 10*3/uL (1.80-7.70); Neutrophils % (A) 52.8 %; Platelet Count 300 X 10*3/uL (140-440); RBC 4.41 X 10*6/uL (4.10-5.20); RDW 14.2 % (11.5-14.5); WBC 11.13 X 10*3/uL (4.50-10.00)
== END | disposition home or self-care (01) ==
LOC: LABWHC1 14:43
PROVIDERS: ATTEND Registered Nurse
DX: D72.829 Elevated white blood cell count, unspecified (principal)
CPT/HCPCS: 36415; 85025

== ENCOUNTER → 2022-10-24 | Outpatient (CLI) | payer MEDICARE ==
--- NOTE | 2022-10-27 19:06 | MM ---
Reason for Exam: Screening (asymptomatic). Last mammogram was performed 1 year(s) and 6 month(s) ago. Patient History: Menarche at age 13. First Full-Term at age 20. Postmenopausal. Other cancer, age 46. Patient used Hormonal Contraceptives for 3 years. Maternal aunt had breast cancer at or over age 50. Risk Values: Norma 5 year model risk: 1.3%. NCI Lifetime model risk: 2.6%. Prior Study Comparison: 09/24/2016 Bilateral Screening Mammogram, [facility]. 12/29/2017 Bilateral Screening Mammogram, [facility]. 12/30/2018 Bilateral Screening Mammogram, [facility]. 04/11/2021 Bilateral Screening Mammogram, [facility]. Tissue Density: There are scattered fibroglandular densities. Findings: Analyzed By CAD. There is no suspicious group of microcalcifications or new suspicious mass in either breast. Overall Assessment: Negative, BI-RAD 1 Management: Screening Mammogram of both breasts in 1 year. . Patient should continue monthly self-breast exams. A clinical breast exam by your physician is recommended on an annual basis. This exam should not preclude additional follow-up of suspicious palpable abnormalities. Note on Norma scores and lifetime risk: 1. A Norma score greater than 3% is considered moderate risk. If this is the case, consider specialist referral to assess eligibility for a risk reducing agent. 2. If overall lifetime risk for the development of breast cancer is 20% or higher, the patient may qualify for future screening with alternating mammogram and breast MRI. Electronically signed and approved by: Jose Hernandez M.D. Radiologist
== END | disposition home or self-care (01) ==
LOC: RADMAMWWP 13:43
PROVIDERS: ATTEND Internal Medicine Geriatric Medicine
DX: Z12.31 Encounter for screening mammogram for malignant neoplasm of breast (principal); Z78.0 Asymptomatic menopausal state; Z80.3 Family history of malignant neoplasm of breast
CPT/HCPCS: 77063; 77067

== ENCOUNTER → 2023-08-20 | Outpatient (CLI) | payer MEDICARE ==
--- NOTE | 2023-08-21 08:47 | XR ---
EXAMINATION TYPE: XR chest 2V DATE OF EXAM: 08/20/2023 3:21 PM CLINICAL INDICATION:Female, 77 years old with history of J06.9 ACUTE UPPER RESPIRATORY INFECTION, UNS PECIFI; [facility] COMPARISON: Chest radiographs from 03/16/2022 TECHNIQUE: XR chest 2V Frontal and lateral views of the chest. FINDINGS: Lungs/Pleura: There is no evidence of pleural effusion, focal consolidation, or pneumothorax. Pulmonary vascularity: Unremarkable. Heart/mediastinum: Cardiomediastinal silhouette is unremarkable. Musculoskeletal: No acute osseous pathology. IMPRESSION: No acute cardiopulmonary disease/process.
== END | disposition home or self-care (01) ==
LOC: RADXRMAIN 15:11
PROVIDERS: ATTEND Internal Medicine Geriatric Medicine
DX: J06.9 Acute upper respiratory infection, unspecified (principal)
CPT/HCPCS: 71046

== ENCOUNTER 2024-04-06 08:41 | Day surgery (SDC) | payer MEDICARE ==
[~2024-04-06 08:41] MED LIST: LIDOCAINE 1% (10MG/ML) FOR IV START INTRADERMA PRN
[2024-04-06] MEDS: IV FLUID CONTINUATION 1,000 ML IV ONE (09:22)
[2024-04-06 09:29] VITALS: TEMP 97
[2024-04-06] MEDS: LACTATED RINGERS 1,000 ML IV SCH (09:34)
[2024-04-06] MEDS ORDERED: PROPOFOL 10 MG/ML 20 ML VIAL IV ONE (10:10)
--- NOTE | 2024-04-06 10:30 | P.PCN ---
Date of Procedure: 04/06/24 Procedure(s) Performed: BRIEF HISTORY: Patient is a 78-year-old pleasant white female scheduled for an elective colonoscopy as a part of evaluation of change in bowel habits. PROCEDURE PERFORMED: Colonoscopy with biopsy. PREOPERATIVE DIAGNOSIS: Change in bowel habits. IV sedation per Anesthesia. PROCEDURE: After informed consent was obtained, the patient, was brought into the endoscopy unit. IV sedation was administered by Anesthesia under continuous monitoring. Digital rectal examination was normal. Initially the Olympus CF-160 flexible video colonoscope was then inserted in the rectum, gradually advanced into the cecum without any difficulty. Careful examination was performed as the scope was gradually being withdrawn. Ileocecal valve and the appendiceal orifice were visualized and appeared normal. Prep was excellent. Mucosa of the cecum 3 mm polyp that was removed by cold biopsy. In the transverse colon there was a 2 mm and 3 mm polyp removed by cold biopsy. Rest of the, ascending colon, transverse colon, descending colon, sigmoid colon, and rectum appeared normal. Retroflexion was performed in the rectum and no lesions were seen. The patient tolerated the procedure well. IMPRESSION: 3 mm cecal polyp status post cold biopsy 2 mm and 3 mm transverse colon polyp status post cold biopsy RECOMMENDATIONS: Findings of this examination were discussed with the patient as well as her family. She was advised to follow-up with the biopsy results. If the biopsy reveals adenoma she can have repeat colonoscopy in 5 years. Will continue with high-fiber diet and MiraLAX on a daily basis..
[2024-04-06 10:50] VITALS: BP 143/64; PULSE 67; RESP 16
== END 2024-04-06 11:16 | disposition home or self-care (01) ==
LOC: ORWHC2ENDO 08:41
PROVIDERS: ATTEND Internal Medicine Gastroenterology
DX: D12.0 Benign neoplasm of cecum (principal); D12.3 Benign neoplasm of transverse colon; K63.89 Other specified diseases of intestine; K59.09 Other constipation; I10 Essential (primary) hypertension; K21.9 Gastro-esophageal reflux disease without esophagitis; Z79.899 Other long term (current) drug therapy; Z85.51 Personal history of malignant neoplasm of bladder; Z88.2 Allergy status to sulfonamides; Z88.5 Allergy status to narcotic agent
CPT/HCPCS: 88305; 45380; J2704

== ENCOUNTER → 2024-09-27 | Outpatient (CLI) | payer MEDICARE ==
--- NOTE | 2024-09-27 12:05 | XR ---
EXAMINATION TYPE: XR chest 2V DATE OF EXAM: 09/27/2024 11:59 AM COMPARISON: Chest radiographs from 08/20/2023 TECHNIQUE: XR chest 2V Frontal and lateral views of the chest. CLINICAL INDICATION:Female, 79 years old with history of R06.02 SHORTNESS OF BREATH; FINDINGS: Lungs/Pleura: There is no evidence of pleural effusion, focal consolidation, or pneumothorax. Left m id lung linear scarring. Pulmonary vascularity: Unremarkable. Heart/mediastinum: Cardiomediastinal silhouette is unremarkable. Musculoskeletal: Multiple level degenerative disc disease changes seen throughout the spine. IMPRESSION: No acute cardiopulmonary disease/process. [facility], , 09/27/2024 12:02 PM
== END | disposition home or self-care (01) ==
LOC: RADXRMAIN 11:40
PROVIDERS: ATTEND Physician Assistant
DX: R06.02 Shortness of breath (principal)
CPT/HCPCS: 71046